=== PATIENT | female | born 1970 | race Caucasian/White ===

== ENCOUNTER 2017-03-22 16:00 | Observation (INO) | payer BC, MEDICARE ==
[~2017-03-22] VITALS: Ht 167.6 cm; Wt 84.1 kg
[~2017-03-22 16:00] MED LIST: ADDE30XR PO; CARI350T19 PO; IBUP800 PO; LOVA20TA PO; NEXI20CA; NORC10TA2; PROM1SUP12 PR; TIZA4; TOPR25TA2; VALI5TAB PO; VICOTAB4 PO; ZOLP10TA3 PO
[2017-03-22 16:17] VITALS: BP 130/63; PULSE 90; RESP 16; TEMP 97.9; O2SAT 99
[2017-03-22] MEDS ORDERED: SODIUM CHLOR 0.9% 1000 ML INJ 1,000 ML IV ONE (16:27)
[2017-03-22] MEDS ORDERED: METOCLOPRAMIDE HCL 10 MG/2 ML VIAL IVP ONE (16:30)
[2017-03-22] MEDS ORDERED: HYDROmorphone HCL PF 1 MG/ML VIAL IV PUSH ONE (16:30)
[2017-03-22] MEDS ORDERED: diphenhydrAMINE HCL 50 MG/ML VIAL IVP ONE (16:30)
[2017-03-22] MEDS ORDERED: SODIUM CHLORIDE 0.9% FLUSH 10 ML FLUSH IVF PRN (16:30)
--- NOTE | 2017-03-22 16:40 | PD ---
HPI Chief Complaint: Headache Time Seen by Provider: 16:25 Travel History International Travel<30 days: No Contact w/Intl Traveler<30days: No Traveled to known affect area: No History of Present Illness HPI 46-year-old female presents for evaluation of headache. She reports that she was evaluated at [facility] on March 15 for headache. She underwent a lumbar puncture to rule out meningitis and she was told that this was negative. She was diagnosed with sinusitis. She reports that after her discharge she developed worsened generalized headache which is worse when standing. She returned on March 16 and was admitted for 4 days. She reports that they attempted do a blood patch however this was unsuccessful. Since discharge she has had persistent generalized throbbing constant headache which is worse when standing. She endorses nausea and vomiting, dehydration. She was referred here by her physician. She reports a history of lumbar fusion which made the blood patch difficult. She denies fevers, chills, chest pain or shortness of breath, abdominal pain. No other complaints. PFSH Past Medical History Arthritis: Yes (DEGENERATIVE DISEASE) Anxiety: Yes (PANIC ATTACHES PRIOR TO ADMISSION ) Depression: No Heart Rhythm Problems: No Cancer: No Cardiovascular Problems: Yes (HYPOTENSION) High Cholesterol: Yes Chest Pain: No Congestive Heart Failure: No Cerebrovascular Accident: No Diabetes: No Diminished Hearing: No Endocrine: No Gastrointestinal Disorders: Yes GERD: Yes Genitourinary: Yes (FEB 2016 INCONTINENCE/BLADDER RECTUM WITH BACK PAIN) Headaches: Yes Hiatal Hernia: Yes Immune Disorder: No Insomnia: Yes Kidney Stones: No Musculoskeletal: Yes Neurologic: Yes ("FAILED BACK SYNDROME") Psychiatric: Yes Reproductive: No Respiratory: No Migraines: Yes Renal Failure: No Seizures: Yes (hx) Ulcer: No Tetanus Vaccination: > 5 Years ?: Not Past Surgical History AICD: No Appendectomy: Yes Arteriovenous Shunt: No Body Medical Devices: HYPOTENTION Cardiac Surgery: No Cholecystectomy: Yes Ear Surgery: No Endocrine Surgery: No Eye Surgery: No Genitourinary Surgery: No Gynecologic Surgery: Yes (HYSTERECTOMY) Hysterectomy: Yes Insulin Pump: No Joint Replacement: Yes (RODS AND SCREWS IN SPINE ) Neurologic Surgery: No Oral Surgery: No Pacemaker: No Thoracic Surgery: No Other Surgery: Yes Social History Alcohol Use: Yes (occasional) Tobacco Use: No Substance Use: No Allergies-Medications (Allergen,Severity, Reaction): Coded Allergies: haloperidol (Verified Allergy, Severe, Anaphylaxis, 10/10/17) ondansetron (Verified Allergy, Severe, Anaphylaxis, 03/22/17) prochlorperazine (Verified Allergy, Severe, Anaphylaxis, 03/22/17) ketorolac (Verified Allergy, Intermediate, SWELLOING ITCHING HIVES , 03/22) tramadol (Verified Allergy, Intermediate, SWELLING ITCHING HIVES , ) Sulfa (Sulfonamide Antibiotics) (Verified Allergy, Mild, Rash, 03/22/17) azithromycin (Verified Allergy, Mild, Rash, 03/22/17) droperidol (Verified Allergy, Mild, Rash, 03/22/17) nalbuphine (Verified Allergy, Mild, N/V, 03/22/17) Reported Meds & Prescriptions Reported Meds & Active Scripts Active Reported Dymista Nasal [place] (Azelastine-Fluticasone Nasal [place]) 137-50 Mcg [place] 1 [place] EACH NARE BID To each nostril. Augmentin (Amoxicillin-Clavulanate) 875-125 Mg Tab 1 Tab PO Q12HR Zolpidem (Zolpidem Tartrate) 10 Mg Tab 10 Mg PO HS PRN Tizanidine (Tizanidine HCl) 4 Mg Cap 4 Mg PO HS Lovastatin 10 Mg Tab 10 Mg PO HS Ibuprofen 800 Mg Tab 800 Mg PO Q8H PRN [place] (Hydrocodone-Acetaminophen) 10-325 Mg Tab 1 Tab PO Q4-6H PRN Nexium (Esomeprazole DR) 20 Mg Capdr 20 Mg PO DAILY PRN Valium (Diazepam) 10 Mg Tab 10 Mg PO TID PRN Soma (Carisoprodol) 350 Mg Tab 350 Mg PO QID PRN Adderall Xr 24 HR (Amphetamine/Dextroamphetamine) 30 Mg Cap 60 Mg PO DAILY Once daily in the morning. Review of Systems Except as stated in HPI: all other systems reviewed are Neg Physical Exam Narrative GENERAL: Well-developed well-nourished female who appears uncomfortable on initial examination. She is lying supine. SKIN: Warm and dry. HEAD: Atraumatic. Normocephalic. EYES: Pupils equal and round. No scleral icterus. No injection or drainage. ENT: No nasal bleeding or discharge. Mucous membranes pink and moist. NECK: Trachea midline. No JVD. CARDIOVASCULAR: Regular rate and rhythm. No murmur appreciated. RESPIRATORY: No accessory muscle use. Clear to auscultation. Breath sounds equal bilaterally. GASTROINTESTINAL: Abdomen soft, non-tender, nondistended. Hepatic and splenic margins not palpable. MUSCULOSKELETAL: No obvious deformities. No clubbing. No cyanosis. No edema. NEUROLOGICAL: Awake and alert. No obvious cranial nerve deficits. Motor grossly within normal limits. Normal speech. PSYCHIATRIC: Appropriate mood and affect; insight and judgment normal. Data Data Last Documented VS Vital Signs Date Time Temp Pulse Resp B/P (MAP) Pulse Ox O2 Delivery O2 Flow Rate FiO2 03/22/17 16:24 15 99 Room Air 03/22/17 16: 97.9 90 130/63 (85) Orders Orders Complete Blood Count With Diff (03/22/17 16:) Comprehensive Metabolic Panel (03/22/17 16:) Prothrombin Time / Inr (Pt) (03/22/17 16:) Act Partial Throm Time (Ptt) (03/22/17 16:) Ct Brain W/O Iv Contrast(Rout) (03/22/17 16:27) Ecg Monitoring (03/22/17 16:27) Iv Access Insert/Monitor (03/22/17 16:) Oximetry (03/22/17 16:27) Sodium Chloride 0.9% Flush (Ns Flush) (03/22/17 16:30) Diphenhydramine Inj (Benadryl Inj) (03/22/17 16:30) Metoclopramide Inj (Reglan Inj) (03/22/17 16:30) Sodium Chlor 0.9% 1000 Ml Inj (Ns 1000 M (03/22/17 16:27) Hydromorphone Pf Inj (Dilaudid Pf Inj) (03/22/17 16:30) Labs Laboratory Tests Test 03/22/17 16:35 White Blood Count 8.6 TH/MM3 Red Blood Count 4.63 MIL/MM3 Hemoglobin 14.6 GM/DL Hematocrit 42.5 % Mean Corpuscular Volume 91.8 FL Mean Corpuscular Hemoglobin 31.6 PG Mean Corpuscular Hemoglobin Concent 34.4 % Red Cell Distribution Width 12.7 % Platelet Count 246 TH/MM3 Mean Platelet Volume 8.6 FL Neutrophils (%) (Auto) 58.2 % Lymphocytes (%) (Auto) 27.4 % Monocytes (%) (Auto) 7.5 % Eosinophils (%) (Auto) 6.2 % Basophils (%) (Auto) 0.7 % Neutrophils # (Auto) 5.0 TH/MM3 Lymphocytes # (Auto) 2.4 TH/MM3 Monocytes # (Auto) 0.6 TH/MM3 Eosinophils # (Auto) 0.5 TH/MM3 Basophils # (Auto) 0.1 TH/MM3 CBC Comment AUTO DIFF Differential Comment AUTO DIFF CONFIRMED Platelet Estimate NORMAL Platelet Morphology Comment NORMAL Prothrombin Time 10.2 SEC Prothromb Time International Ratio 0.9 RATIO Activated Partial Thromboplast Time 22.3 SEC Blood Urea Nitrogen 7 MG/DL Creatinine 0.63 MG/DL Random Glucose 86 MG/DL Total Protein 7.3 GM/DL Albumin 3.5 GM/DL Calcium Level 8.6 MG/DL Alkaline Phosphatase 102 U/L Aspartate Amino Transf (AST/SGOT) 97 U/L Alanine Aminotransferase (ALT/SGPT) 123 U/L Total Bilirubin 0.8 MG/DL Sodium Level 138 MEQ/L Potassium Level 4.0 MEQ/L Chloride Level 104 MEQ/L Carbon Dioxide Level 27.0 MEQ/L Anion Gap 7 MEQ/L Estimat Glomerular Filtration Rate 102 ML/MIN MDM Medical Decision Making Medical Screen Exam Complete: Yes Emergency Medical Condition: Yes Medical Record Reviewed: Yes Differential Diagnosis Post lumbar puncture headache, subarachnoid hemorrhage, tension headache, migraine without aura Narrative Course The patient was placed on ECG monitoring pulse oximetry. Plan is for lab work, CT of the brain. She was given IV fluids, Dilaudid, Reglan, Benadryl. 1750: Upon reexamination the patient's headache has not been alleviated by the above medications. CT of the brain is unremarkable. Labwork reveals mildly elevated liver enzymes. At this point in time the plan is to admit the patient for intractable post-lumbar puncture headache, possibly IR consultation for blood patch. D/w Dr. Lazcano who is agreeable with admission. Diagnosis Primary Impression: Post lumbar puncture headache Admitting Information Admitting Physician Requests: Howard Reagan Mar 22, 2017 16:40
[2017-03-22] MEDS ORDERED: IBUP800T23 PO (16:52)
[2017-03-22] MEDS ORDERED: AZEL137S EACH NARE (16:52)
[2017-03-22] MEDS ORDERED: TIZA4CAP3 PO (16:52)
[2017-03-22] MEDS ORDERED: LOVA10TA PO (16:52)
[2017-03-22] MEDS ORDERED: ADDE30XR PO (16:52)
[2017-03-22] MEDS ORDERED: AUGM875T3 PO (16:52)
[2017-03-22] MEDS ORDERED: NEXI20CA PO (16:52)
[2017-03-22] MEDS ORDERED: ZOLP10TA3 PO (16:52)
[2017-03-22] MEDS ORDERED: HYDR-3366 PO (16:52)
[2017-03-22] MEDS ORDERED: DIAZ10 PO (16:52)
[2017-03-22] MEDS ORDERED: SOMA350T PO (16:52)
[2017-03-22 17:10] LABS: BASOPHIL # 0.1 TH/MM3 (0-0.2); BASOPHIL % 0.7 % (0.0-2.0); EOSINOPHIL # 0.5 TH/MM3 (0-0.4); EOSINOPHIL % 6.2 % (0.0-4.0); HEMATOCRIT 42.5 % (35.0-46.0); LYMPH % 27.4 % (9.0-44.0); LYMPHOCYTE # 2.4 TH/MM3 (1.0-4.8); MEAN CELL VOLUME 91.8 FL (80.0-100.0); MEAN CORPUSCULAR HEMOGLOBIN 31.6 PG (27.0-34.0); MEAN CORPUSCULAR HGB CONC 34.4 % (32.0-36.0); MONO % 7.5 % (0.0-8.0); NEUT % 58.2 % (16.0-70.0); PLATELET COUNT 246 TH/MM3 (150-450); RED BLOOD COUNT 4.63 MIL/MM3 (4.00-5.30); RED CELL DISTRIBUTION WIDTH 12.7 % (11.6-17.2); WHITE BLOOD COUNT 8.6 TH/MM3 (4.0-11.0)
[2017-03-22 17:14] LABS: HEMO FLAGS AUTO DIFF
[2017-03-22 17:18] LABS: APTT (PATIENT) 22.3 SEC (24.3-30.1); INTERNATIONAL NORMALIZED RATIO 0.9 RATIO; PROTHROMBIN TIME - PATIENT 10.2 SEC (9.8-11.6)
[2017-03-22 17:36] LABS: ALKALINE PHOSPHATASE 102 U/L (45-117); TOTAL BILIRUBIN ADULT 0.8 MG/DL (0.2-1.0)
[2017-03-22 17:37] LABS: ALT (GPT) 123 U/L (10-53); ANION GAP 7 MEQ/L (5-15); AST (GOT) 97 U/L (15-37); BLOOD UREA NITROGEN 7 MG/DL (7-18); CHLORIDE 104 MEQ/L (98-107); GLOMERULAR FILTRATION RATE 102 ML/MIN (>89); SODIUM (NA) 138 MEQ/L (136-145)
--- NOTE | 2017-03-22 17:40 | RADRPT ---
EXAM DATE/TIME: 03/22/2017 17:15 [place] COMPARISON: CT BRAIN W/O CONTRAST, January 31, 2016, 12:03. INDICATIONS : Leaking lumbar puncture,headache RADIATION DOSE: 31.71 CTDIvol (mGy) MEDICAL HISTORY : Cardiovascular disease. Seizures. SURGICAL HISTORY : Arthroscopy. Cholecystectomy.Hysterectomy. ENCOUNTER: Initial ACUITY: 1 day PAIN SCALE: 10/10 LOCATION: cranial TECHNIQUE: Multiple contiguous axial images were obtained of the head. Using automated exposure control and adj ustment of the mA and/or kV according to patient size, radiation dose was kept as low as reasonably a chievable to obtain optimal diagnostic quality images. DICOM format image data is available electro nically for review and comparison. FINDINGS: CEREBRUM: The ventricles are normal for age. No evidence of midline shift, mass lesion, hemorrhage or acute in farction. No extra-axial fluid collections are seen. POSTERIOR FOSSA: The cerebellum and brainstem are intact. The 4th ventricle is midline. The cerebellopontine angle i s unremarkable. EXTRACRANIAL: The visualized portion of the orbits is intact. SKULL: The calvaria is intact. No evidence of skull fracture. CONCLUSION: No acute disease. Malachi Garcia MD on March 22, 2017 at 17:37 Board Certified Radiologist. This report was verified electronically.
[2017-03-22 17:50] LABS: PLATELET ESTIMATE SMEAR NORMAL (NORMAL); PLATELET MORPHOLOGY NORMAL (NORMAL); SCAN/DIFF AUTO DIFF CONFIRMED
[2017-03-22] MEDS ORDERED: SODIUM CHLORIDE 0.9% FLUSH 10 ML FLUSH IV FLUSH PRN (18:15)
[2017-03-22] MEDS ORDERED: SENNOSIDES 8.6 MG TAB PO PRN (18:15)
[2017-03-22] MEDS ORDERED: LACTULOSE SYRUP 20 GM/30 ML CUP PO PRN (18:15)
[2017-03-22] MEDS ORDERED: BISACODYL 10 MG SUPP RECTAL PRN (18:15)
[2017-03-22] MEDS ORDERED: NALOXONE HCL 0.4 MG/ML AMP IV PUSH PRN (18:15)
[2017-03-22] MEDS ORDERED: ACETAMINOPHEN 325 MG TAB PO PRN (18:15)
[2017-03-22] MEDS ORDERED: MAGNESIUM HYDROXIDE SUSP 30 ML CUP PO PRN (18:15)
[2017-03-22 18:57] VITALS: BP 104/67; PULSE 81; RESP 15; O2SAT 96
[2017-03-22 18:58] VITALS: BP 104/67; PULSE 77; RESP 14; O2SAT 97
[2017-03-22] MEDS: SODIUM CHLOR 0.9% 1000 ML INJ 1,000 ML IV SCH (19:01)
[2017-03-22 19:26] LABS: BETA HCG QUANT LESS THAN 1 MIU/ML (0-5)
--- NOTE | 2017-03-22 19:39 | MH ---
cc: DUSTY LAZCANO DATE OF ADMISSION 03/22/2017 DATE OF [address] Dusty Lazcano. PRIMARY CARE PHYSICIAN Dr. Christianson. REASON FOR ADMISSION Severe headache. HISTORY OF THE PRESENT ILLNESS The patient is a very pleasant 46-year-old female with significant past medical history of back problem for which she had a fusion in the past. As per patient she has a lumbar puncture in the past and at that time she had a blood patch done at [facility] by Dr. Irwin for severe headache and . As per patient she was having some problem for which she had a lumbar puncture done at [facility] on March 15. After that she is having severe pain. She has a history of sinusitis as well. And headache is severe with nausea and vomiting. She went back to [facility] where a blood patch was done and she was there for 4 days but it did not help. She was discharged. She continues to have a headache for which she came here today. Evaluated by the ER PA and because of the severe headache with nausea, vomiting and headache is worsening on standing, the patient was recommended for observation admission and for blood patch here. At present the patient is seen in the ER, room number 857 with a nurse. The patient he has no other associated symptoms. PAST MEDICAL HISTORY 1. Degenerative disc disease status post surgery. 2. Panic attacks in the past. 3. History of hypertension in the past. 4. Gastroesophageal reflux disease. 5. Chronic back pain ___ dependent. 6. Hysterectomy. 7. Rods and screws in the spine for fusion. MEDICATIONS Reviewed please see EMR. ALLERGIES THE PATIENT IS ALLERGIC TO HALDOL ONDANSETRON, PROCHLORPERAZINE, KETOROLAC, TRAMADOL, SULFA, AZITHROMYCIN, DROPERIDOL AND NALBUPHINE. SOCIAL HISTORY The patient stopped smoking a few years ago. Occasional drinks. Does not do any drugs. REVIEW OF SYSTEMS As described above in the history of present illness, otherwise negative for 10 systems. PHYSICAL EXAMINATION GENERAL: The patient is alert, oriented, lying in bed without any cardiorespiratory distress. VITAL SIGNS: The patient is afebrile. Pulse in the 90, respiratory rate 15, blood pressure 130/63. Pulse oximetry of 99% on room air. HEENT: Head is normocephalic, atraumatic. Eyes negative conjunctival icterus. Mouth is unremarkable. NECK: Supple. No increased JVD. Central trachea. CHEST: Clear to auscultation. CARDIOVASCULAR: S1-S2 audible. Unable to hear any S3 gallop. GASTROINTESTINAL: Abdomen soft, nontender. No organomegaly. Positive bowel sounds. MUSCULOSKELETAL: Extremities no cyanosis or pedal edema appreciated. CENTRAL NERVOUS SYSTEM: Alert and oriented. Normal facial features. Normal speech. Moving all her extremities. Normal deep tendon reflexes at knee joint. Normal Babinski's. PSYCHIATRIC: Within normal limits. IMAGING CT no acute disease. LABORATORY DATA CBC within normal limits. BMP within normal limits. AST 97, ALT 123 otherwise LFTs within normal limits. PT 10.2, INR 0.9, APTT 22.3. ASSESSMENT 1. Severe headache with nausea and vomiting after a lumbar puncture likely secondary to CSF leakage status post blood patch at [facility], need a blood patch. 2. Sinusitis on antibiotics. We will continue. 3. Chronic back pain ____ dependent. 4. Hypercholesterolemia by history. 5. History of gastroesophageal reflux disease. 6. Hypertension history. PLAN 1. The patient will be admitted under observation. 2. Anesthesia consultation. 3. IV hydration. 4. Analgesics and antiemetics on as needed basis. 5. Continue some of the home medications as indicated. 6. Condition discussed with the patient. Further recommendations to follow as the patient progresses. Dusty Lazcano MD JP/CATRINA /6:36 PM /6:50 PM
[2017-03-22 20:37] VITALS: BP 92/51; PULSE 74; RESP 18; TEMP 98.1; O2SAT 96
[2017-03-22] MEDS: SODIUM CHLORIDE 0.9% FLUSH 10 ML FLUSH IV FLUSH SCH (21:00)
[2017-03-22] MEDS: AZELASTINE FLUTICASONE NASAL SCH (21:00)
[2017-03-22] MEDS: DIAZEPAM 10 MG TAB PO PRN (21:29)
[2017-03-22] MEDS: ACETAMINOPHEN/HYDROcodone 325 MG/10 MG TAB PO PRN (21:29)
[2017-03-22] MEDS: ZOLPIDEM TARTRATE 10 MG TAB PO PRN (21:29)
[2017-03-22] MEDS: DOCUSATE SODIUM 50 MG/SENNA 8.6 MG TAB PO SCH (21:29)
[2017-03-22] MEDS: PRAVASTATIN SOD 10 MG TAB PO SCH (21:29)
[2017-03-22] MEDS: AMOXICILLIN/CLAVULANATE K 875 MG TAB PO SCH (21:29)
[2017-03-22] MEDS: HYDROmorphone HCL PF 1 MG/ML VIAL IV PUSH PRN (21:57)
[2017-03-22] MEDS: METOCLOPRAMIDE HCL 10 MG/2 ML VIAL IV PUSH PRN (22:38)
[2017-03-22 23:43] VITALS: BP 96/49; PULSE 67; RESP 18; TEMP 98; O2SAT 95
[2017-03-23] MEDS: ACETAMINOPHEN/HYDROcodone 325 MG/10 MG TAB PO PRN ×2 (02:42→07:06)
[2017-03-23] MEDS: SODIUM CHLOR 0.9% 1000 ML INJ 1,000 ML IV SCH ×2 (02:42→20:01)
[2017-03-23 03:28] VITALS: BP 90/50; PULSE 66; RESP 18; TEMP 98.2; O2SAT 98
[2017-03-23] MEDS: HYDROmorphone HCL PF 1 MG/ML VIAL IV PUSH PRN ×3 (03:51→11:37)
[2017-03-23] MEDS ORDERED: PANTOPRAZOLE SOD 20 MG DELAYED RELEASE TAB PO PRN (06:00)
[2017-03-23 08:13] VITALS: BP 96/51; PULSE 76; RESP 20; TEMP 97.8; O2SAT 98
[2017-03-23] MEDS: AMOXICILLIN/CLAVULANATE K 875 MG TAB PO SCH ×2 (08:32→21:14)
[2017-03-23] MEDS: METOCLOPRAMIDE HCL 10 MG/2 ML VIAL IV PUSH PRN (08:32)
[2017-03-23] MEDS: SODIUM CHLORIDE 0.9% FLUSH 10 ML FLUSH IV FLUSH SCH ×2 (08:33→21:00)
[2017-03-23] MEDS: DOCUSATE SODIUM 50 MG/SENNA 8.6 MG TAB PO SCH ×3 (08:34→21:14)
[2017-03-23] MEDS: AZELASTINE FLUTICASONE NASAL SCH ×2 (08:35→21:00)
[2017-03-23] MEDS: DEXTROAMPHETAMINE/AMPHETAMINE XR 30 MG CAP PO SCH (09:00)
[2017-03-23] MEDS ORDERED: PNEUMOCOCCAL POLYVALENT INJ 25 MCG/0.5 ML SYR IM ONE (10:00)
[2017-03-23] MEDS ORDERED: INFLUENZA VIRUS VACCINE (QUADRIVALENT) 0.5 ML SYR IM ONE (10:00)
[2017-03-23 11:50] VITALS: BP 110/58; PULSE 77; RESP 18; TEMP 96.8; O2SAT 97
[2017-03-23] MEDS: DIAZEPAM 10 MG TAB PO PRN ×2 (12:43→21:14)
[2017-03-23] MEDS ORDERED: RESP: LIDOCAINE HCL 4% PF 5 ML NEB ONE (13:11)
[2017-03-23] MEDS ORDERED: MIDAZOLAM HCL 5 MG/5 ML VIAL ONE (13:19)
[2017-03-23] MEDS ORDERED: MIDAZOLAM HCL 5 MG/5 ML VIAL IV PUSH ONE (14:30)
--- NOTE | 2017-03-23 15:28 | HHI.PR ---
Subjective Remarks Patient is still complaining of headache generalized type with nausea and vomiting. As the patient Compazine she is allergic to. As the patient only Phenergan works. [place] as the patient tolerated doesn't work she is okay with morphine. No other associated symptoms. Patient was examined with female RN at bedside Review of system for 10 point system otherwise unremarkable Objective Objective Results - Vital Signs Date Time Temp Pulse Resp B/P (MAP) Pulse Ox O2 Delivery O2 Flow Rate FiO2 03/23/17 14:00 84 18 121/65 (83) 96 Room Air 03/23/17 13:30 82 17 120/67 (84) 96 Room Air 03/23/17 13:25 78 18 120/68 (85) 96 Room Air 03/23/17 13:25 81 18 133/70 (91) 95 Room Air 03/23/17 13:10 77 18 126/70 (88) 100 Room Air 03/23/17 11:50 96.8 77 18 110/58 (75) 97 03/23/17 08:13 97.8 76 20 96/51 (66) 98 03/23/17 04:35 18 03/23/17 03:50 18 03/23/17 03:28 98.2 66 18 90/50 (63) 98 03/22/17 23:43 98.0 67 18 96/49 (65) 95 03/22/17 20:37 98.1 74 18 92/51 (65) 96 03/22/17 19:46 03/22/17 18:58 77 14 104/67 (79) 97 Room Air 03/22/17 18:57 81 15 104/67 (79) 96 Room Air 03/22/17 17:20 15 03/22/17 16:24 15 99 Room Air 03/22/17 16:17 97.9 90 16 130/63 (85) 99 I/O 03/22/17 03/22/17 03/22/17 03/23/17 03/23/17 03/23/17 07:00 15:00 23:00 07:00 15:00 23:00 Intake Total 1100 ml 200 ml Balance 1100 ml 200 ml Intake Oral 100 ml 200 ml IV Total 1000 ml Result Diagram: 03/22/17 1635 03/22/17 1635 Other Results Laboratory Tests Test 03/22/17 16:35 White Blood Count 8.6 Red Blood Count 4.63 Hemoglobin 14.6 Hematocrit 42.5 Mean Corpuscular Volume 91.8 Mean Corpuscular Hemoglobin 31.6 Mean Corpuscular Hemoglobin Concent 34.4 Red Cell Distribution Width 12.7 Platelet Count 246 Mean Platelet Volume 8.6 Neutrophils (%) (Auto) 58.2 Lymphocytes (%) (Auto) 27.4 Monocytes (%) (Auto) 7.5 Eosinophils (%) (Auto) 6.2 Basophils (%) (Auto) 0.7 Neutrophils # (Auto) 5.0 Lymphocytes # (Auto) 2.4 Monocytes # (Auto) 0.6 Eosinophils # (Auto) 0.5 Basophils # (Auto) 0.1 CBC Comment AUTO DIFF Differential Comment AUTO DIFF CONFIRMED Platelet Estimate NORMAL Platelet Morphology Comment NORMAL Prothrombin Time 10.2 Prothromb Time International Ratio 0.9 Activated Partial Thromboplast Time 22.3 Blood Urea Nitrogen 7 Creatinine 0.63 Random Glucose 86 Total Protein 7.3 Albumin 3.5 Calcium Level 8.6 Alkaline Phosphatase 102 Aspartate Amino Transf (AST/SGOT) 97 Alanine Aminotransferase (ALT/SGPT) 123 Total Bilirubin 0.8 Sodium Level 138 Potassium Level 4.0 Chloride Level 104 Carbon Dioxide Level 27.0 Anion Gap 7 Estimat Glomerular Filtration Rate 102 Human Chorionic Gonadotropin, Quant LESS THAN 1 Physical Exam Physical Exam GENERAL: The patient is alert, oriented, lying in bed without any cardiorespiratory distress. VITAL SIGNS: Reviewed HEENT: Head is normocephalic, atraumatic. Eyes negative conjunctival icterus. Mouth is unremarkable. NECK: Supple. No increased JVD. Central trachea. CHEST: Clear to auscultation. CARDIOVASCULAR: S1-S2 audible. Unable to hear any S3 gallop. GASTROINTESTINAL: Abdomen soft, nontender. No organomegaly. Positive bowel sounds. MUSCULOSKELETAL: Extremities no cyanosis or pedal edema appreciated. CENTRAL NERVOUS SYSTEM: Alert and oriented. Normal facial features. Normal speech. Moving all her extremities. Normal deep tendon reflexes at knee joint. Normal Babinski's. PSYCHIATRIC: Within normal limits. A/P Assessment and Plan 1. Severe headache with nausea and vomiting after a lumbar puncture likely secondary to CSF leakage status post blood patch at [facility], need a blood patch. 2. Sinusitis on antibiotics. We will continue. 3. Chronic back pain and narcotic dependent. 4. Hypercholesterolemia by history. 5. History of gastroesophageal reflux disease. 6. Hypertension history. PLAN DC Dilaudid Start Phenergan Start morphine for pain Dr. Irwin is going to do a blood patch in [place] tomorrow Discussed with case supervisor about transportation to [place] tomorrow point of care specialist for blood patch Continue IV hydration. Continue some of the home medications as indicated. Condition discussed with the patient. Discussed with RN Discussed case supervisor Edwin Lazcano MD Mar 23, 2017 15:28
[2017-03-23] MEDS ORDERED: MORPHINE SULFATE 2 MG/ML INJ IM PRN (15:30)
[2017-03-23 16:10] VITALS: BP 121/62; PULSE 81; RESP 18; TEMP 97.2; O2SAT 99
[2017-03-23] MEDS ORDERED: PROMETHAZINE INJ 25 MG/ML VIAL IM ONE (16:30)
[2017-03-23] MEDS: MORPHINE SULFATE 2 MG/ML INJ IV PRN ×2 (18:27→23:16)
[2017-03-23 20:08] VITALS: BP 111/60; PULSE 89; RESP 17; TEMP 97.9; O2SAT 97
[2017-03-23] MEDS: ZOLPIDEM TARTRATE 10 MG TAB PO PRN (21:14)
[2017-03-23] MEDS: PROMETHAZINE HCL 25 MG TAB PO PRN (21:14)
[2017-03-23] MEDS: PRAVASTATIN SOD 10 MG TAB PO SCH (21:14)
[2017-03-23 23:23] VITALS: BP 87/53; PULSE 79; RESP 16; TEMP 97.9; O2SAT 96
[2017-03-24] MEDS: SODIUM CHLOR 0.9% 1000 ML INJ 1,000 ML IV SCH ×3 (00:15→20:15)
[2017-03-24 03:07] VITALS: BP 105/52; PULSE 76; RESP 16; TEMP 98; O2SAT 99
[2017-03-24] MEDS: MORPHINE SULFATE 2 MG/ML INJ IV PRN ×3 (05:10→17:42)
[2017-03-24] MEDS: AZELASTINE FLUTICASONE NASAL SCH ×2 (09:00→21:00)
[2017-03-24] MEDS: METOCLOPRAMIDE HCL 10 MG/2 ML VIAL IV PUSH PRN (13:21)
[2017-03-24] MEDS: SODIUM CHLORIDE 0.9% FLUSH 10 ML FLUSH IV FLUSH SCH ×2 (13:21→20:50)
[2017-03-24 15:49] VITALS: BP 96/57; PULSE 98; RESP 18; TEMP 96; O2SAT 98
[2017-03-24] MEDS: CARISOPRODOL 350 MG TAB PO PRN (16:36)
[2017-03-24] MEDS: DEXTROAMPHETAMINE/AMPHETAMINE XR 30 MG CAP PO SCH (17:43)
[2017-03-24] MEDS: AMOXICILLIN/CLAVULANATE K 875 MG TAB PO SCH ×2 (17:44→20:49)
[2017-03-24] MEDS: PROMETHAZINE HCL 25 MG TAB PO PRN (17:46)
--- NOTE | 2017-03-24 18:14 | HHI.PR ---
Subjective Remarks As per patient headache is significantly improved after blood patch. Want a regular diet. Now she wants to sleep. She has been told to be a flat tonight. No other complaint. Just feeling tired after so many days of no good sleep No other associated symptoms. Patient was examined with female RN at bedside Review of system for 10 point system otherwise unremarkable Objective Objective Results - Vital Signs Date Time Temp Pulse Resp B/P (MAP) Pulse Ox O2 Delivery O2 Flow Rate FiO2 03/24/17 15:49 96.0 98 18 96/57 (70) 98 03/24/17 03:07 98.0 76 16 105/52 (69) 99 03/24/17 00:54 18 03/23/17 23:23 97.9 79 16 87/53 (64) 96 03/23/17 20:08 97.9 89 17 111/60 (77) 97 I/O 03/23/17 03/23/17 03/23/17 03/24/17 03/24/17 03/24/17 07:00 15:00 23:00 07:00 15:00 23:00 Intake Total 200 ml 2201 ml 2901 ml Balance 200 ml 2201 ml 2901 ml Intake Oral 200 ml 200 ml 200 ml IV Total 2001 ml 2201 ml Other 500 ml # Voids 4 # Bowel Movements 1 Result Diagram: 03/22/17 1635 03/22/17 1635 Physical Exam Physical Exam GENERAL: The patient is alert, oriented, lying in bed without any cardiorespiratory distress. VITAL SIGNS: Reviewed HEENT: Head is normocephalic, atraumatic. Eyes negative conjunctival icterus. Mouth is unremarkable. NECK: Supple. No increased JVD. Central trachea. CHEST: Clear to auscultation. CARDIOVASCULAR: S1-S2 audible. Unable to hear any S3 gallop. GASTROINTESTINAL: Abdomen soft, nontender. No organomegaly. Positive bowel sounds. MUSCULOSKELETAL: Extremities no cyanosis or pedal edema appreciated. CENTRAL NERVOUS SYSTEM: Alert and oriented. Normal facial features. Normal speech. Moving all her extremities. Normal deep tendon reflexes at knee joint. Normal Babinski's. PSYCHIATRIC: Within normal limits. A/P Assessment and Plan 1. Severe headache with nausea and vomiting after a lumbar puncture likely secondary to CSF leakage status post blood patch at [facility], need a blood patch. 2. Sinusitis on antibiotics. We will continue. 3. Chronic back pain and narcotic dependent. 4. Hypercholesterolemia by history. 5. History of gastroesophageal reflux disease. 6. Hypertension history. PLAN Appreciate Dr. Irwin's help. Status post blood patch Start Phenergan Start morphine for pain Headache is significantly improved there is no other associated symptoms Continue IV hydration. Continue some of the home medications as indicated. Condition discussed with the patient. Likely discharge tomorrow if is stable Discussed with RN Patient has appointment with Dr. Irwin on coming Tuesday Edwin Lazcano MD Mar 24, 2017 18:14
[2017-03-24 20:23] VITALS: BP 92/50; PULSE 87; RESP 18; TEMP 97.8; O2SAT 96
[2017-03-24] MEDS: PRAVASTATIN SOD 10 MG TAB PO SCH (20:50)
[2017-03-24] MEDS: DOCUSATE SODIUM 50 MG/SENNA 8.6 MG TAB PO SCH (20:51)
[2017-03-24 23:49] VITALS: BP 88/53; PULSE 70; RESP 17; TEMP 97.6; O2SAT 96
[2017-03-25 00:24] VITALS: BP 103/58
[2017-03-25] MEDS: ZOLPIDEM TARTRATE 10 MG TAB PO PRN (00:30)
[2017-03-25] MEDS: MORPHINE SULFATE 2 MG/ML INJ IV PRN (00:30)
[2017-03-25 03:34] VITALS: BP 80/53; PULSE 74; RESP 17; TEMP 97.9; O2SAT 97
[2017-03-25] MEDS: MORPHINE SULFATE 4 MG/ML INJ IV PRN ×3 (05:37→15:07)
[2017-03-25 08:10] VITALS: BP 103/56; PULSE 72; RESP 20; TEMP 97.9; O2SAT 97
[2017-03-25] MEDS: SODIUM CHLOR 0.9% 1000 ML INJ 1,000 ML IV SCH (08:45)
[2017-03-25] MEDS: DEXTROAMPHETAMINE/AMPHETAMINE XR 30 MG CAP PO SCH (08:45)
[2017-03-25] MEDS: SODIUM CHLORIDE 0.9% FLUSH 10 ML FLUSH IV FLUSH SCH (08:45)
[2017-03-25] MEDS: AMOXICILLIN/CLAVULANATE K 875 MG TAB PO SCH (08:45)
[2017-03-25] MEDS: AZELASTINE FLUTICASONE NASAL SCH (08:47)
[2017-03-25] MEDS: DOCUSATE SODIUM 50 MG/SENNA 8.6 MG TAB PO SCH (08:48)
[2017-03-25] MEDS: CARISOPRODOL 350 MG TAB PO PRN (10:44)
[2017-03-25 12:13] VITALS: BP 120/60; PULSE 70; RESP 20; TEMP 98; O2SAT 96
--- NOTE | 2017-03-25 14:59 | HHI.PR ---
Subjective Remarks As per patient no more headache after blood patch. She wants to go home today. Vision can get up without any problem walking No other complaint. Just feeling tired after so many days of no good sleep No other associated symptoms. Patient was examined with female RN at bedside Review of system for 10 point system otherwise unremarkable Objective Objective Results - Vital Signs Date Time Temp Pulse Resp B/P (MAP) Pulse Ox O2 Delivery O2 Flow Rate FiO2 03/25/17 12:13 98.0 70 20 120/60 (80) 96 03/25/17 08:10 97.9 72 20 103/56 (72) 97 03/25/17 05:42 18 03/25/17 03:34 97.9 74 17 80/53 (62) 97 03/25/17 00:35 16 03/25/17 00:24 103/58 (73) 03/24/17 23:49 97.6 70 17 88/53 (65) 96 03/24/17 20:23 97.8 87 18 92/50 (64) 96 03/24/17 15:49 96.0 98 18 96/57 (70) 98 I/O 03/24/17 03/24/17 03/24/17 03/25/17 03/25/17 03/25/17 07:00 15:00 23:00 07:00 15:00 23:00 Intake Total 2901 ml 1000 ml Balance 2901 ml 1000 ml Intake Oral 200 ml IV Total 2201 ml 1000 ml Other 500 ml Result Diagram: 03/22/17 1635 03/22/17 1635 Physical Exam Physical Exam GENERAL: The patient is alert, oriented, lying in bed without any cardiorespiratory distress. VITAL SIGNS: Reviewed HEENT: Head is normocephalic, atraumatic. Eyes negative conjunctival icterus. Mouth is unremarkable. NECK: Supple. No increased JVD. Central trachea. CHEST: Clear to auscultation. CARDIOVASCULAR: S1-S2 audible. Unable to hear any S3 gallop. GASTROINTESTINAL: Abdomen soft, nontender. No organomegaly. Positive bowel sounds. MUSCULOSKELETAL: Extremities no cyanosis or pedal edema appreciated. CENTRAL NERVOUS SYSTEM: Alert and oriented. Normal facial features. Normal speech. Moving all her extremities. Normal deep tendon reflexes at knee joint. Normal Babinski's. PSYCHIATRIC: Within normal limits. Back exam; 2 bandages, no swelling no discoloration nontender A/P Assessment and Plan 1. Severe headache with nausea and vomiting after a lumbar puncture likely secondary to CSF leakage status post blood patch at [facility], need a blood patch. 2. Sinusitis on antibiotics. We will continue. 3. Chronic back pain and narcotic dependent. 4. Hypercholesterolemia by history. 5. History of gastroesophageal reflux disease. 6. Hypertension history. PLAN Appreciate Dr. Irwin's help. Status post blood patch An Angio-Seal on a when necessary basis Headache is significantly improved there is no other associated symptoms on IV hydration. Continue some of the home medications as indicated. Condition discussed with the patient. Likely discharge today if is stable Discussed with RN Patient has appointment with Dr. Irwin on coming Tuesday Advised to follow primary care doctor Edwin Lazcano MD Mar 25, 2017 14:59
== END 2017-03-25 16:45 | disposition home or self-care (01) ==
LOC: NEPE 16:00 → NEDA 18:02 → NEPGCP 19:32
PROVIDERS: ADMIT Specialist; ATTEND Specialist
DX: G97.1 Other reaction to spinal and lumbar puncture (principal); R51 Headache; R11.2 Nausea with vomiting, unspecified; E86.0 Dehydration; R74.8 Abnormal levels of other serum enzymes; I10 Essential (primary) hypertension; E78.00 Pure hypercholesterolemia, unspecified; K21.9 Gastro-esophageal reflux disease without esophagitis; M54.9 Dorsalgia, unspecified; G89.29 Other chronic pain; M19.90 Unspecified osteoarthritis, unspecified site; R79.1 Abnormal coagulation profile; F11.20 Opioid dependence, uncomplicated; Z87.891 Personal history of nicotine dependence; Z79.899 Other long term (current) drug therapy; Z98.1 Arthrodesis status; Z23 Encounter for immunization
CPT/HCPCS: 36569; 70450; 76937; 80053; 84702; 85025; 85610; 85730; 90686; 90732; 96361; 96372; 96374; 96375; 96376; 99285; G0378; J1170; J1200; J2250; J2270; J2550; J2765; J7030; Q0169; Q2038

== ENCOUNTER → 2017-03-24 | Day surgery (SDC) | payer BC, MEDICARE ==
[~2017-03-24] MED LIST changes: +AUGM875T3 PO; +AZEL137S EACH NARE; -CARI350T19 PO; +DIAZ10 PO; +HYDR-3366 PO; -IBUP800 PO; +IBUP800T23 PO; +LIDOCAINE HCL 1% 30 ML VIAL INFIL ONE; +LOVA10TA PO; -LOVA20TA PO; +MEPERIDINE HCL 25 MG/ML VIAL IV ONE; +MIDAZOLAM HCL 2 MG/2 ML VIAL IV ONE; +MORPHINE SULFATE 2 MG/ML INJ ONE; -NEXI20CA; +NEXI20CA PO; -NORC10TA2; -PROM1SUP12 PR; +PROPOFOL 200 MG/20 ML AMP IV ONE; +SODIUM CHLORIDE 0.9% 10 ML VIAL ONE; +SOMA350T PO; -TIZA4; +TIZA4CAP3 PO; -TOPR25TA2; -VALI5TAB PO; -VICOTAB4 PO
--- NOTE | 2017-03-24 11:09 | M6 ---
cc: GERA IRWIN M.D. DATE 03/24/2017 DATE OF 1970 PROCEDURE Fluoroscopically guided epidural blood patch. History and physical was completed and signed. Consent was signed. Procedure site was marked. Medications were listed and reconciled. Pain score was recorded. Allergies were noted. Time out was taken. Fluoroscopy time was recorded where applicable. Sedation was administered or directed by Dr. Irwin. The patient was given oxygen. The patient was monitored by a registered nurse. Total procedure time was greater than 15 minutes. PROCEDURE NOTE The patient had a PICC line in her right arm. She was placed in the prone position on a Dave table, sedated with small amounts of Demerol, Versed and propofol titrated to effect. Her lumbar area was prepped with alcohol, 10% Betadine solution and draped with sterile drapes. Sterile gloves were used. Hat and mask were used. The skin was infiltrated with 1% Xylocaine using a 27-gauge needle, then a 3-1/2-inch, 18-gauge Littlejohn needle was advanced using fluoroscopic guidance and the [id number] technique into the epidural space at L3-4. Then multiple attempts were made at drawing the blood from veins in the patient's bilateral hands, bilateral antecubital fossa and the left foot. For each one of these attempts the skin was prepped with alcohol and Betadine and strict aseptic technique was used. Finally after 40 minutes of attempts, the decision was made to draw blood from her PICC line using aseptic technique. 18 mL of blood was drawn and injected into the epidural space. The needle was removed from the epidural space. The patient was taken to the recovery room with stable vital signs, neurologically intact. W. MD SKYLER Bundy/ELSI /9:36 AM /11:02 AM
== END | disposition home or self-care (01) ==
LOC: PHSDC 07:35
PROVIDERS: ATTEND Pain Medicine Interventional Pain Medicine
DX: R51 Headache (principal)
CPT/HCPCS: 62273; 77002; 99152; 99153; J2175; J2250; J2270

== ENCOUNTER → 2017-04-11 | Day surgery (SDC) | payer BC, MEDICARE ==
[~2017-04-11] VITALS: Ht 167.6 cm; Wt 83.0 kg
[~2017-04-11] MED LIST changes: +*morphine SULFATE 8 MG/ML PERIprocedure ONLY ONE; -AUGM875T3 PO; +BACITRACIN TOP OINT 15 GM TUBE ONE; +CHLORHEXIDINE GLUCONATE 2 % 1 PACK (2 CLOTHS) TOPICAL PRN; +DEXAMETHASONE SOD PHOS 4 MG/ML VIAL IV ONE; +DEXMEDETOMIDINE HCL 200 MCG/2 ML VIAL ONE; +DEXT10TA2 PO; +DO NOT ADM ANY ANTICOAGULANT DRUGS PRN; +HYDROmorphone HCL PF 1 MG/ML VIAL ONE; +HYDROmorphone HCL PF 2 MG/ML VIAL ONE; +INSULIN HUMAN REGULAR 1,000 UNITS/10 ML VIAL SQ PRN; +LACTATED RINGER'S 1000 ML IV PRN; +LIDOCAINE 1%/EPINEPHrine 1:100,000 SOLN 20 ML VIAL ONE; -LIDOCAINE HCL 1% 30 ML VIAL INFIL ONE; +LIDOCAINE HCL 1% PF 5 ML AMPULE OTHER ONE; -MEPERIDINE HCL 25 MG/ML VIAL IV ONE; +METOPROLOL TARTRATE 25 MG TAB PO PRN; -MORPHINE SULFATE 2 MG/ML INJ ONE; -NEXI20CA PO; +OXYMETAZOLINE HCL 0.05% 15 ML NASAL SPRAY ONE; +PHENYLEPH/NS 1000 MCG/10 ML SYR IV ONE; +POVIDONE IODINE 5% (ANTISEPSIS KIT) 4 APPLICATIONS EACH NARE PRN; +PROMETHAZINE INJ 25 MG/ML VIAL ONE; +ROCURONIUM INJ 50 MG/5 ML SYRINGE IV PUSH ONE; +SODIUM CHLORID 0.9% 500 ML IV PRN; -SODIUM CHLORIDE 0.9% 10 ML VIAL ONE; +SUCR1TAB PO; +SUGAMMADEX SODIUM 200 MG/2 ML VIAL IV PUSH ONE; +oxyCODONE/ACETAMINOPHEN 5 MG/325 MG TAB ONE; +oxyCODONE/ACETAMINOPHEN 5 MG/325 MG TAB PO PRN
[2017-04-11 12:30] VITALS: BP 121/70; PULSE 63; RESP 16; TEMP 98; O2SAT 100
--- NOTE | 2017-04-13 13:34 | MP ---
cc: KWABENA MCLEAN MD DATE OF SURGERY: 04/11/2017 PREOPERATIVE DIAGNOSIS Chronic sinusitis and headache. POSTOPERATIVE DIAGNOSIS Chronic sinusitis and headache. PROCEDURE PERFORMED Bilateral functional endoscopic sinus surgery with bilateral maxillary antrostomies, bilateral frontal sinusotomy, anterior ethmoidectomy and bilateral sphenoidotomy. ANESTHESIA General endotracheal. COMPLICATIONS None. FLUID REPLACEMENT 850 mL. ESTIMATED BLOOD LOSS 100 mL. INDICATION FOR PROCEDURE This is a 46-year-old female with chronic sinusitis unresponsive to maximal medical therapy. She continued to have headaches. She had a failed balloon sinuplasty approximately a year and a half ago due to allergic fungal sinusitis and continued to worsen with chronic sinus disease and complaints unresponsive to nebulized treatment as well as maximal medical therapy and deemed to require surgical intervention. The risks and benefits of the surgery were described in detail with the patient. She understood these and wished to proceed as planned. DESCRIPTION OF OPERATIVE COURSE After informed consent was obtained, the patient was taken to the operating room and was placed on the operating table. General endotracheal anesthesia was initiated following which the patient was prepped and draped in standard surgical fashion. Once this completed an operative timeout was undertaken. Once everyone was in agreement the procedure moved forward as planned. At this time 1% lidocaine with epinephrine on a spinal needle was injected into the uncinate processes bilaterally. Approximately 3 cc was used. Once this completed Afrin-soaked pledgets were inserted into the nasal cavity to allow proper decongestant to take place. Once this was finished a balloon-guided system was used to dilate the frontal sinus recesses bilaterally to 12 cm of H2O under direct visualization. Some inspissated mucus was suctioned out of this area. There was a small polypoid mucosa along the left frontal sinus recess. This was removed using an up-biter without difficulty. Both frontal sinus recesses were widely opened. At this time an uncinectomy was performed bilaterally using the backbiter, opening the uncinate process and the maxillary antrum widely, using the microdebrider then to remove the entirety of the uncinate process on both sides, widely opening the maxillary antrum. The maxillary sinus mucosa was very edematous and inspissated mucus that was filled in on the right side was removed under direct suction. There was no fungal debris noted at this time. Both the sinuses were then copiously irrigated out with 100 cc of normal saline and a curved olive-tip suction. Once this was completed the anterior ethmoid air cells were entered using the microdebrider bilaterally. There was inspissated mucus in the anterior ethmoid air cells. On the left there was again polypoid mucosa noted. This was removed using the microdebrider. Both maxillary sinuses and anterior ethmoids were widely opened. At this time Afrin-soaked pledgets were inserted into the middle meatus bilaterally to allow proper hemostasis to be obtained. At this time using the balloon-guided system both sphenoid sinuses were widely open to 12 cm of H2O widely opening the sphenoid sinuses. There was no inspissated mucus noted in either, however, on the left there was some mucosal edema noted but no fungal debris. Once this completed the Afrin-soaked pledgets were removed. Proper hemostasis was obtained. Sinu-Foam was then placed into the middle meatuses bilaterally. This marked the end of the procedure. The patient tolerated the procedure well, was awoken, extubated and transferred to the PACU in stable condition. Kwabena Mclean AT/BT /12:50 PM /1:17 PM
== END | disposition home or self-care (01) ==
LOC: HSDC 05:14
PROVIDERS: ATTEND Otolaryngology
DX: J32.0 Chronic maxillary sinusitis (principal); J32.1 Chronic frontal sinusitis; J32.3 Chronic sphenoidal sinusitis; R09.81 Nasal congestion; K21.9 Gastro-esophageal reflux disease without esophagitis; R51 Headache
CPT/HCPCS: 00160; 31254; 31256; 31276; 31287; J1100; J1170; J2250; J2270; J2370; J2550; J3010; J7120

== ENCOUNTER 2017-05-13 19:11 | Emergency (ER) | payer BC, MEDICARE ==
[~2017-05-13] VITALS: Ht 170.2 cm; Wt 82.0 kg
[~2017-05-13 19:11] MED LIST changes: -*morphine SULFATE 8 MG/ML PERIprocedure ONLY ONE; +AMOX-CLAV PO; -BACITRACIN TOP OINT 15 GM TUBE ONE; -CHLORHEXIDINE GLUCONATE 2 % 1 PACK (2 CLOTHS) TOPICAL PRN; -DEXAMETHASONE SOD PHOS 4 MG/ML VIAL IV ONE; -DEXMEDETOMIDINE HCL 200 MCG/2 ML VIAL ONE; -DO NOT ADM ANY ANTICOAGULANT DRUGS PRN; -HYDROmorphone HCL PF 1 MG/ML VIAL ONE; -HYDROmorphone HCL PF 2 MG/ML VIAL ONE; +IBUP1TAB7 PO; -IBUP800T23 PO; -INSULIN HUMAN REGULAR 1,000 UNITS/10 ML VIAL SQ PRN; -LACTATED RINGER'S 1000 ML IV PRN; -LIDOCAINE 1%/EPINEPHrine 1:100,000 SOLN 20 ML VIAL ONE; -LIDOCAINE HCL 1% PF 5 ML AMPULE OTHER ONE; -METOPROLOL TARTRATE 25 MG TAB PO PRN; -MIDAZOLAM HCL 2 MG/2 ML VIAL IV ONE; -OXYMETAZOLINE HCL 0.05% 15 ML NASAL SPRAY ONE; -PHENYLEPH/NS 1000 MCG/10 ML SYR IV ONE; -POVIDONE IODINE 5% (ANTISEPSIS KIT) 4 APPLICATIONS EACH NARE PRN; -PROMETHAZINE INJ 25 MG/ML VIAL ONE; -PROPOFOL 200 MG/20 ML AMP IV ONE; -ROCURONIUM INJ 50 MG/5 ML SYRINGE IV PUSH ONE; -SODIUM CHLORID 0.9% 500 ML IV PRN; -SUGAMMADEX SODIUM 200 MG/2 ML VIAL IV PUSH ONE; -oxyCODONE/ACETAMINOPHEN 5 MG/325 MG TAB ONE; -oxyCODONE/ACETAMINOPHEN 5 MG/325 MG TAB PO PRN
[2017-05-13 19:12] VITALS: BP 139/68; PULSE 94; RESP 16; TEMP 98; O2SAT 99
[2017-05-13] MEDS ORDERED: PRED20 PO (19:58)
[2017-05-13] MEDS ORDERED: CYAN1000P IM (19:58)
--- NOTE | 2017-05-13 20:19 | PD ---
HPI Chief Complaint: Bleeding Time Seen by Provider: 20:07 Travel History International Travel<30 days: No Contact w/Intl Traveler<30days: No Traveled to known affect area: No History of Present Illness HPI 46-year-old female presents with pain and increased bruising to her breast. He states that yesterday she had a breast biopsy with Dr chen and was told that they nicked a blood vessel. They marked an area on her breast and monitored her. She states that since she has been home that area has increased outside the area marked and her pain has increased. She denies any other concurrent concerns. Quality is sharp. Severity is severe. PFSH Past Medical History Arthritis: Yes (DEGENERATIVE DISK DISEASE) Asthma: No Blood Disorders: No Anxiety: Yes Depression: No Heart Rhythm Problems: No Cancer: No Cardiovascular Problems: Yes (Hypotension ) High Cholesterol: No Chemotherapy: No Chest Pain: No Congestive Heart Failure: No COPD: No Cerebrovascular Accident: No Diabetes: No Diminished Hearing: No Endocrine: No Gastrointestinal Disorders: Yes (GERD) GERD: Yes Headaches: Yes Hepatitis: No Hiatal Hernia: Yes Immune Disorder: No Insomnia: Yes Kidney Stones: No Medical other: Yes (brain tumor-routine MRI's to monitor it ) Musculoskeletal: Yes (back pain) Neurologic: Yes (headaches and back pain due to l2 to s1 fusion spine, HX: Sz ( resloved?)) Psychiatric: Yes (anxiety, ADHD) Reproductive: No Respiratory: Yes (seasonal allergies; sinus sx (last one 03/29) ) Migraines: Yes Radiation Therapy: No Renal Failure: No Seizures: Yes (hx; has an EEG that showed activity but has none that she is aware of ) Sleep Apnea: No Thyroid Disease: No Ulcer: No ?: Not Past Surgical History AICD: No Appendectomy: Yes Arteriovenous Shunt: No Body Medical Devices: lumbar screws/pin Cardiac Surgery: No Cholecystectomy: Yes Ear Surgery: No Endocrine Surgery: No Eye Surgery: No Genitourinary Surgery: No Gynecologic Surgery: Yes (HYSTERECTOMY; L breast BX (05/12/17) w/o for breast CA vs Cystic breasts) Hysterectomy: Yes (PARTIAL) Insulin Pump: No Joint Replacement: No Neurologic Surgery: No Oral Surgery: No Pacemaker: No Thoracic Surgery: No Other Surgery: Yes (multiple spinal taps over years) Social History Alcohol Use: Yes (occasional) Tobacco Use: No Substance Use: No Allergies-Medications (Allergen,Severity, Reaction): Coded Allergies: haloperidol (Verified Allergy, Severe, Anaphylaxis, 05/13/17) ondansetron (Verified Allergy, Severe, Anaphylaxis, 05/13/17) prochlorperazine (Verified Allergy, Severe, Anaphylaxis, 05/13/17) ketorolac (Verified Allergy, Intermediate, SWELLOING ITCHING HIVES , ) tramadol (Verified Allergy, Intermediate, SWELLING ITCHING HIVES , 05/13/17 ) Sulfa (Sulfonamide Antibiotics) (Verified Allergy, Mild, Rash, 05/13/17) azithromycin (Verified Allergy, Mild, Rash, 05/13/17) droperidol (Verified Allergy, Mild, Rash, 05/13/17) nalbuphine (Verified Allergy, Mild, N/V, 05/13/17) Reported Meds & Prescriptions Reported Meds & Active Scripts Active Reported Cyanocobalamin Inj (Cyanocobalamin) 1,000 Mcg/Ml Inj 1 Ml IM WEEKLY [Amox-Clav] 875mg-125mg 1 Tab PO BID 10 Days Prednisone 20 Mg Tab 40 Mg PO DAILY Dextroamphetamine (Dextroamphetamine Sulfate) 10 Mg Tab 10 Mg PO BID PRN Ibuprofen 800 Mg Tab 800 Mg PO BID PRN Sucralfate 1 Gram Tab 1 Gm PO QID on empty stomach Dymista Nasal [place] (Azelastine-Fluticasone Nasal [place]utier) 137-50 Mcg Clutier 1 Clutier EACH NARE BID To each nostril. Zolpidem (Zolpidem Tartrate) 10 Mg Tab 10 Mg PO HS PRN Tizanidine (Tizanidine HCl) 4 Mg Cap 4 Mg PO HS Lovastatin 10 Mg Tab 10 Mg PO HS [place] (Hydrocodone-Acetaminophen) 10-325 Mg Tab 1 Tab PO Q4-6H PRN Valium (Diazepam) 10 Mg Tab 10 Mg PO TID PRN Soma (Carisoprodol) 350 Mg Tab 350 Mg PO DAILY PRN Adderall Xr 24 HR (Amphetamine/Dextroamphetamine) 30 Mg Cap 60 Mg PO DAILY Once daily in the morning. Review of Systems Except as stated in HPI: all other systems reviewed are Neg Physical Exam Narrative GENERAL: Well-nourished, well-developed patient. SKIN: To left breast above areola there is a large area of ecchymosis noted that is tender HEAD: Normocephalic and atraumatic. EYES: No injection or drainage. ENT: No nasal drainage noted. NECK: Supple, trachea midline. CARDIOVASCULAR: Regular rate and rhythm RESPIRATORY: No increased effort. No accessory muscle use. NEUROLOGICAL: Awake and alert. Moves all extremities and sensory grossly within normal limits. Normal speech. Data Data Last Documented VS Vital Signs Date Time Temp Pulse Resp B/P (MAP) Pulse Ox O2 Delivery O2 Flow Rate FiO2 05/13/17 20:00 Room Air 05/13/17 19:12 98.0 94 16 139/68 (91) 99 Orders Orders Complete Blood Count With Diff (05/13/17 20:09) Basic Metabolic Panel (Bmp) (05/13/17 20:09) Iv Access Insert/Monitor (05/13/17 20:09) Ecg Monitoring (05/13/17 20:09) Oximetry (05/13/17 20:09) Type And Screen (05/13/17 20:09) Invasive Rad Dept Consult (05/13/17 20:12) Us Breast Unilateral (05/13/17 20:13) Morphine Inj (Morphine Inj) (05/13/17 20:30) Ondansetron Inj (Zofran Inj) (05/13/17 20:43) Ed Discharge Order (05/13/17 22:58) Labs Laboratory Tests Test 05/13/17 21:50 White Blood Count 11.4 TH/MM3 Red Blood Count 4.82 MIL/MM3 Hemoglobin 15.5 GM/DL Hematocrit 45.4 % Mean Corpuscular Volume 94.2 FL Mean Corpuscular Hemoglobin 32.2 PG Mean Corpuscular Hemoglobin Concent 34.2 % Red Cell Distribution Width 13.9 % Platelet Count 280 TH/MM3 Mean Platelet Volume 8.4 FL Neutrophils (%) (Auto) 74.8 % Lymphocytes (%) (Auto) 19.0 % Monocytes (%) (Auto) 5.6 % Eosinophils (%) (Auto) 0.1 % Basophils (%) (Auto) 0.5 % Neutrophils # (Auto) 8.5 TH/MM3 Lymphocytes # (Auto) 2.2 TH/MM3 Monocytes # (Auto) 0.6 TH/MM3 Eosinophils # (Auto) 0.0 TH/MM3 Basophils # (Auto) 0.1 TH/MM3 CBC Comment DIFF FINAL Differential Comment Blood Urea Nitrogen 10 MG/DL Creatinine 0.83 MG/DL Random Glucose 73 MG/DL Calcium Level 9.3 MG/DL Sodium Level 137 MEQ/L Potassium Level 3.5 MEQ/L Chloride Level 100 MEQ/L Carbon Dioxide Level 30.6 MEQ/L Anion Gap 6 MEQ/L Estimat Glomerular Filtration Rate 74 ML/MIN MDM Medical Decision Making Medical Screen Exam Complete: Yes Emergency Medical Condition: Yes Medical Record Reviewed: Yes (past history confirmed) Interpretation(s) CBC & BMP Diagram 05/13/17 21:50 Calcium Level 9.3 Last 24 hours Impressions Breast Ultrasound 05/13/172012 Signed Impressions: Service Date/Time: Saturday, May 13, 2017 20:59 - CONCLUSION: 1. Left breast hematoma measuring up to 5 cm in maximal width and about 1 cm in thickness. Findings were discussed with the patient. No active hemorrhage identified. No drainable fluid collections. Patient instructed to return to the emergency department if increasing pain or swelling occurs. Juwan Ji MD Differential Diagnosis Hematoma, bleed, anemia Narrative Course Will check blood work and discuss with radiologist Ultrasound added on and will provide morphine for pain Ultrasound shows hematoma, hemoglobin stable, Dr. Ji came in and evaluated patient and states she can go home Physician Communication Physician Communication dr ji states to check ultrasound and will see patient dr ji came and saw patient and states given ultrasound and exam if labs are normal can go home Diagnosis Primary Impression: Breast hematoma Patient Instructions: General Instructions Additional Instructions: tylenol as needed, follow with primary for recheck tuesday, return as needed Med/Other Pt SpecificInfo: No Change to Meds Disposition: 01 DISCHARGE HOME Condition: Stable Gillian Araiza MD May 13, 2017 20:19
[2017-05-13] MEDS ORDERED: MORPHINE SULFATE 4 MG/ML INJ IV PUSH ONE (20:30)
[2017-05-13] MEDS ORDERED: ONDANSETRON HCL 4 MG/2 ML VIAL ONE (20:43)
--- NOTE | 2017-05-13 21:57 | RADRPT ---
EXAM DATE/TIME: 05/13/2017 20:59 [facility] COMPARISON: No previous studies available for comparison. EXTERNAL COMPARISON : [facility], US BREAST, LEFT, April 21, 2017, MAMMOGRAM, LEFT BREAST W TOMOSYNTHESIS, Novem 2016, [facility], MAMMOGRAM, SCREENING W TOMOSYNTHESIS, April 19, 2017, MAMMOGRAM, SCREENING, May 19, 2007. INDICATIONS : Hematoma. MEDICAL HISTORY : Gastroesophageal reflux disease. Neck pain. Seizures. Migraine. Hypotension. Hiatal hernia. Urina ry tract infection. Arthritis. Anxiety. Depression. Brain tumor. SURGICAL HISTORY : Cholecystectomy. Appendectomy. Hysterectomy. Sinus surgery. Left breast biopsy. Spinal tap. ENCOUNTER: Initial ACUITY: 2 days PAIN SCORE: 8/10 LOCATION: Left breast. FINDINGS: There is a breast hematoma measuring up to about 5 cm in length and around 1 cm in thickness maximall y. No active hemorrhage identified. The hematoma appears to be clotted. CONCLUSION: 1. Left breast hematoma measuring up to 5 cm in maximal width and about 1 cm in thickness. Findings w ere discussed with the patient. No active hemorrhage identified. No drainable fluid collections. Tati ent instructed to return to the emergency department if increasing pain or swelling occurs. Juwan Avilez MD on May 13, 2017 at 21:53 Board Certified Radiologist. This report was verified electronically.
[2017-05-13 22:15] LABS: AUTOMATED NEUTROPHIL # 8.5 TH/MM3 (1.8-7.7); BASOPHIL # 0.1 TH/MM3 (0-0.2); BASOPHIL % 0.5 % (0.0-2.0); EOSINOPHIL % 0.1 % (0.0-4.0); HEMATOCRIT 45.4 % (35.0-46.0); HEMO FLAGS DIFF FINAL; LYMPHOCYTE # 2.2 TH/MM3 (1.0-4.8); MEAN CELL VOLUME 94.2 FL (80.0-100.0); MEAN CORPUSCULAR HEMOGLOBIN 32.2 PG (27.0-34.0); MEAN CORPUSCULAR HGB CONC 34.2 % (32.0-36.0); MONO % 5.6 % (0.0-8.0); NEUT % 74.8 % (16.0-70.0); PLATELET COUNT 280 TH/MM3 (150-450); RED BLOOD COUNT 4.82 MIL/MM3 (4.00-5.30); RED CELL DISTRIBUTION WIDTH 13.9 % (11.6-17.2); WHITE BLOOD COUNT 11.4 TH/MM3 (4.0-11.0)
[2017-05-13 22:47] LABS: BICARBONATE 30.6 MEQ/L (21.0-32.0); POTASSIUM 3.5 MEQ/L (3.5-5.1)
[2017-05-16] MEDS ORDERED: AUGM875T3 PO (11:34)
== END 2017-05-14 00:10 | disposition home or self-care (01) ==
LOC: NEPC 19:11
DX: S20.02XA Contusion of left breast, initial encounter (principal); M19.90 Unspecified osteoarthritis, unspecified site; F41.9 Anxiety disorder, unspecified; K21.9 Gastro-esophageal reflux disease without esophagitis; F90.9 Attention-deficit hyperactivity disorder, unspecified type; R56.9 Unspecified convulsions; X58.XXXA Exposure to other specified factors, initial encounter; Z79.899 Other long term (current) drug therapy; Z88.2 Allergy status to sulfonamides
CPT/HCPCS: 76642; 80048; 85025; 86850; 86900; 86901; 96374; 99285; J2270; J2405

== ENCOUNTER → 2017-07-05 | Day surgery (SDC) | payer BC, MEDICARE ==
[~2017-07-05] MED LIST changes: -AMOX-CLAV PO; +AUGM875T3 PO; +CYAN1000P IM; +MEPERIDINE HCL 50 MG/ML VIAL IV ONE; +MIDAZOLAM HCL 2 MG/2 ML VIAL IV ONE; +MORPHINE SULFATE PF 5 MG/10 ML VIAL IT ONE; +PRED20 PO; +PROPOFOL 200 MG/20 ML AMP IV ONE; +SODIUM CHLOR 0.9% 250 ML BAG IV ONE; +SODIUM CHLORIDE 0.9% INJ 100 ML ONE; +ceFAZolin INJ 1,000 MG VIAL ONE; +diphenhydrAMINE HCL 50 MG/ML VIAL IV ONE
--- NOTE | 2017-07-06 11:39 | M6 ---
cc: GERA IRWIN M.D. DATE 07/05/2017 DATE OF 1970 PROCEDURE Implantation of intrathecal catheter for continuous infusion of intrathecal morphine. PROCEDURE NOTE History and physical was completed and signed. Consent was signed. Procedure site was marked. Medications were listed and reconciled. Pain score was recorded. Allergies were noted. Timeout was taken. Fluoroscopy time was recorded where applicable. Sedation was administered or directed by Dr. Irwin. The patient was given oxygen. The patient was monitored by a registered nurse. Total procedure time was greater than 15 minutes. An IV was started, blood pressure cuff, pulse oximeter and EKG were applied. The consent forms were signed. The surgical site was marked. The patient was sedated with small amounts of Demerol and propofol titrated to effect. Vital signs were monitored and remained stable throughout the procedure. The lumbar area was prepped with alcohol and 10% Betadine, draped with sterile drapes. Fluoroscopy was used to visualize the L2-3 interlaminar space. The skin was infiltrated with 1% Xylocaine using a 27-gauge needle. Then an 18-gauge Tuohy needle was advanced under fluoroscopic guidance on the first attempt into the cerebral spinal fluid which was clear. Then a Portex catheter was threaded in a cephalad direction to vertebral bodies. Then a small incision was made around the needle. The stylet was removed and then the needle was removed. A tunneling device was placed in the small incision and tunneled to exit on the patient's left flank. Then the Portex catheter was threaded through the tunneling device to exit on the left flank. The small lumbar incision and the exit on the left flank was covered with antibiotic solution and sterile adhesive dressings. There was clear flow of cerebrospinal fluid through the entire catheter system. The patient was attached to a continuous infusion of morphine in a concentration of 0.01 mg/ml at a continuous initial rate of 1 mL an hour. She was taken to the recovery room with stable vital signs. W. MD ERNESTO BundyM/REMEDIOS /8:02 AM /11:22 AM
== END | disposition home or self-care (01) ==
LOC: PHSDC 06:38
PROVIDERS: ATTEND Pain Medicine Interventional Pain Medicine
DX: M54.5 Low back pain (principal); G89.29 Other chronic pain
CPT/HCPCS: 62350; 99152; 99153; C2626; J0690; J1200; J2175; J2250; J2274; J7050

== ENCOUNTER 2017-07-14 04:06 | Emergency (ER) | payer BC, MEDICARE ==
[~2017-07-14] VITALS: Ht 167.6 cm; Wt 85.0 kg
[~2017-07-14 04:06] MED LIST changes: -AUGM875T3 PO; -MEPERIDINE HCL 50 MG/ML VIAL IV ONE; -MIDAZOLAM HCL 2 MG/2 ML VIAL IV ONE; -MORPHINE SULFATE PF 5 MG/10 ML VIAL IT ONE; -PROPOFOL 200 MG/20 ML AMP IV ONE; -SODIUM CHLOR 0.9% 250 ML BAG IV ONE; -SODIUM CHLORIDE 0.9% INJ 100 ML ONE; -ceFAZolin INJ 1,000 MG VIAL ONE; -diphenhydrAMINE HCL 50 MG/ML VIAL IV ONE
[2017-07-14 04:07] VITALS: BP 138/73; PULSE 72; RESP 18; TEMP 97.7; O2SAT 99
[2017-07-14 04:22] VITALS: BP 142/67; PULSE 76; RESP 16; TEMP 98; O2SAT 98
[2017-07-14] MEDS ORDERED: SODIUM CHLOR 0.9% 1000 ML INJ 1,000 ML IV ONE ×2 (04:45→06:30)
--- NOTE | 2017-07-14 05:23 | PD ---
HPI Chief Complaint: Headache Time Seen by Provider: 04:36 Travel History International Travel<30 days: No Contact w/Intl Traveler<30days: No Traveled to known affect area: No History of Present Illness HPI 46-year-old female presents to the emergency department by private transportation for complaint of headache. Patient states she has a cerebral spinal fluid leak. Patient states yesterday her pain management doctor Dr. Irwin removed an Portex infusion catheter 07/13/17. Patient states since 3 PM she has had a severe headache. Patient contacted her physician who recommended that she take Excedrin and ibuprofen and Tylenol and come to the hospital morning to have an blood patch performed. Patient states overnight pain became intolerable so she decided come to the emergency room at this time. The patient has not reported any chills but reportedly had a fever of 101F around 11 PM last evening. Patient has had no headache except for when she sits upright no sore throat no earache no neck stiffness no chest pain no cough no congestion no shortness of breath no abdominal pain dysuria frequency urgency or diarrhea. Patient has had nausea. Patient states as long as she supine she has no headache pain as stated she is upright she has severe headache. Patient reports each time they change her infusion port or she has an epidural she has issues with severe headache related to cerebral spinal fluid leak and has had to have blood patch. Patient states she's been drinking plenty of fluids and drinking large amounts of caffeine. PFSH Past Medical History Narrative Medical Arthritis anxiety hypertension GERD insomnia migraines seizure lumbar fusion cholecystectomy multiple epidurals hysterectomy; occasional alcohol use; nursing notes reviewed Arthritis: Yes (DEGENERATIVE DISK DISEASE) Asthma: No Blood Disorders: No Anxiety: Yes Depression: No Heart Rhythm Problems: No Cancer: No Cardiovascular Problems: Yes (Hypotension ) High Cholesterol: No Chemotherapy: No Chest Pain: No Congestive Heart Failure: No COPD: No Cerebrovascular Accident: No Diabetes: No Diminished Hearing: No Endocrine: No Gastrointestinal Disorders: Yes (gastroesophageal reflux disease) GERD: Yes Headaches: Yes Hepatitis: No Hiatal Hernia: Yes Immune Disorder: No Insomnia: Yes Kidney Stones: No Medical other: Yes (chol) Musculoskeletal: Yes (back pain) Neurologic: Yes (headaches and back pain due to l2 to s1 fusion spine, HX: Sz ( resloved?)) Psychiatric: Yes (anxiety, ADHD) Reproductive: No Respiratory: Yes (seasonal allergies; sinus sx (last one 03/29) ) Migraines: Yes Radiation Therapy: No Renal Failure: No Seizures: Yes (migrainesne that she is aware of ) Sleep Apnea: No Thyroid Disease: No Ulcer: No Tetanus Vaccination: < 5 Years Influenza Vaccination: Yes ?: Not Past Surgical History AICD: No Appendectomy: Yes Arteriovenous Shunt: No Body Medical Devices: lumbar screws/pin Cardiac Surgery: No Cholecystectomy: Yes Ear Surgery: No Endocrine Surgery: No Eye Surgery: No Genitourinary Surgery: No Gynecologic Surgery: Yes (HYSTERECTOMY; L breast BX (05/12/17) w/o for breast CA vs Cystic breasts) Hysterectomy: Yes Insulin Pump: No Joint Replacement: No Neurologic Surgery: No Oral Surgery: No Pacemaker: No Thoracic Surgery: No Other Surgery: Yes (multiple spinal taps over years, dorsal puncture with drain and removal) Social History Alcohol Use: Yes (occasional) Tobacco Use: No Substance Use: No Allergies-Medications (Allergen,Severity, Reaction): Coded Allergies: haloperidol (Verified Allergy, Severe, Anaphylaxis, 07/14/17) ondansetron (Verified Allergy, Severe, Anaphylaxis, 07/14/17) prochlorperazine (Verified Allergy, Severe, Anaphylaxis, 07/14/17) ketorolac (Verified Allergy, Intermediate, SWELLOING ITCHING HIVES , ) tramadol (Verified Allergy, Intermediate, SWELLING ITCHING HIVES , 07/14/17) Sulfa (Sulfonamide Antibiotics) (Verified Allergy, Mild, Rash, 07/14/17) azithromycin (Verified Allergy, Mild, Rash, 07/14/17) droperidol (Verified Allergy, Mild, Rash, 07/14/17) nalbuphine (Verified Allergy, Mild, N/V, 07/14/17) Reported Meds & Prescriptions Reported Meds & Active Scripts Active Reported Cyanocobalamin Inj (Cyanocobalamin) 1,000 Mcg/Ml Inj 1 Ml IM WEEKLY Dextroamphetamine (Dextroamphetamine Sulfate) 10 Mg Tab 10 Mg PO BID PRN Ibuprofen 800 Mg Tab 800 Mg PO BID PRN Sucralfate 1 Gram Tab 1 Gm PO QID on empty stomach Dymista Nasal [place] (Azelastine-Fluticasone Nasal [place]) 137-50 Mcg [place] 1 [place] EACH NARE BID To each nostril. Zolpidem (Zolpidem Tartrate) 10 Mg Tab 10 Mg PO HS PRN Tizanidine (Tizanidine HCl) 4 Mg Cap 4 Mg PO HS Lovastatin 10 Mg Tab 10 Mg PO HS [place] (Hydrocodone-Acetaminophen) 10-325 Mg Tab 1 Tab PO Q4-6H PRN Valium (Diazepam) 10 Mg Tab 10 Mg PO TID PRN Soma (Carisoprodol) 350 Mg Tab 350 Mg PO DAILY PRN Adderall Xr 24 HR (Amphetamine/Dextroamphetamine) 30 Mg Cap 60 Mg PO DAILY Once daily in the morning. Review of Systems Except as stated in HPI: all other systems reviewed are Neg Physical Exam Narrative GENERAL: Well-developed well-nourished female in no acute distress no respiratory distress; GCS 15 SKIN: Warm and dry. HEAD: Normocephalic. EYES: No scleral icterus. No injection or drainage. NECK: Supple, trachea midline. No JVD or lymphadenopathy. CARDIOVASCULAR: Regular rate and rhythm without murmurs, gallops, or rubs. RESPIRATORY: Breath sounds equal bilaterally. No accessory muscle use. GASTROINTESTINAL: Abdomen soft, non-tender, nondistended. MUSCULOSKELETAL: No cyanosis, or edema. BACK: Nontender without obvious deformity. No CVA tenderness. Data Data Last Documented VS Vital Signs Date Time Temp Pulse Resp B/P (MAP) Pulse Ox O2 Delivery O2 Flow Rate FiO2 07/14/17 04:22 98.0 76 16 142/67 (92) 98 Room Air Orders Orders ^ Saline Lock (07/14/17 04:36) Complete Blood Count With Diff (07/14/17 04:36) Basic Metabolic Panel (Bmp) (07/14/17 04:36) Act Partial Throm Time (Ptt) (07/14/17 04:36) Prothrombin Time / Inr (Pt) (07/14/17 04:36) Sodium Chlor 0.9% 1000 Ml Inj (Ns 1000 M (07/14/17 04:45) Urinalysis - C+S If Indicated (07/14/17 04:41) Ed Urine Pregnancytest Poc (07/14/17 04:41) Morphine Inj (Morphine Inj) (07/14/17 06:00) Sodium Chlor 0.9% 1000 Ml Inj (Ns 1000 M (07/14/17 06:30) Metoclopramide Inj (Reglan Inj) (07/14/17 06:30) Diphenhydramine Inj (Benadryl Inj) (07/14/17 06:30) Labs Laboratory Tests Test 07/14/17 05:15 07/14/17 06:15 White Blood Count 5.4 TH/MM3 Red Blood Count 4.58 MIL/MM3 Hemoglobin 14.5 GM/DL Hematocrit 42.0 % Mean Corpuscular Volume 91.6 FL Mean Corpuscular Hemoglobin 31.7 PG Mean Corpuscular Hemoglobin Concent 34.6 % Red Cell Distribution Width 13.2 % Platelet Count 208 TH/MM3 Mean Platelet Volume 8.4 FL Neutrophils (%) (Auto) 46.1 % Lymphocytes (%) (Auto) 39.1 % Monocytes (%) (Auto) 10.5 % Eosinophils (%) (Auto) 3.4 % Basophils (%) (Auto) 0.9 % Neutrophils # (Auto) 2.5 TH/MM3 Lymphocytes # (Auto) 2.1 TH/MM3 Monocytes # (Auto) 0.6 TH/MM3 Eosinophils # (Auto) 0.2 TH/MM3 Basophils # (Auto) 0.0 TH/MM3 CBC Comment DIFF FINAL Differential Comment Prothrombin Time 10.2 SEC Prothromb Time International Ratio 1.0 RATIO Activated Partial Thromboplast Time 24.3 SEC Blood Urea Nitrogen 8 MG/DL Creatinine 0.76 MG/DL Random Glucose 98 MG/DL Calcium Level 8.4 MG/DL Sodium Level 141 MEQ/L Potassium Level 4.0 MEQ/L Chloride Level 109 MEQ/L Carbon Dioxide Level 25.6 MEQ/L Anion Gap 6 MEQ/L Estimat Glomerular Filtration Rate 82 ML/MIN Urine Color LIGHT-YELLOW Urine Turbidity CLEAR Urine pH 7.0 Urine Specific [place] 1.005 Urine Protein NEG mg/dL Urine Glucose (UA) NEG mg/dL Urine Ketones NEG mg/dL Urine Occult Blood NEG Urine Nitrite NEG Urine Bilirubin NEG Urine Urobilinogen LESS THAN 2.0 MG/DL Urine Leukocyte Esterase NEG Urine WBC LESS THAN 1 /hpf Urine Squamous Epithelial Cells 2 /hpf Urine Bacteria RARE /hpf Microscopic Urinalysis Comment CULT NOT INDICATED MDM Medical Decision Making Medical Screen Exam Complete: Yes Emergency Medical Condition: Yes Medical Record Reviewed: Yes Differential Diagnosis Cervical spinal fluid leak, epidural hematoma, epidural abscess, meningitis, UTI , influenza, viral syndrome Narrative Course IV access obtained specimens collected and sent for resulting 1 L normal saline administered additional liter NS 1 L along with Reglan and morphine sulfate 4mg iv patient c/o mild pruritus after morphine and states she forgot to share that she has a mild sensitivity to morphine therefore Benadryl 25 mg IV administered Patient's case discussed with on-call anesthesia regarding having a blood patch performed on this patient per Dr. George Irwin typically does his own blood patch however age and can stay in the ER and they will check on her between cases to perform a blood patch Call placed to Dr. Irwin @6:[address] Irwin ---> will arrange for her to have patch by him at [facility] today, staff will call back with dispo arrangements; care signed over to Dr Madden Physician Communication Physician Communication Discussed with anesthesia; call placed to Dr Irwin Diagnosis Primary Impression: Headache Additional Impression: Cerebrospinal fluid leak from spinal puncture Marla Lugo MD Jul 14, 2017 05:23
[2017-07-14 05:29] LABS: AUTOMATED NEUTROPHIL # 2.5 TH/MM3 (1.8-7.7); BASOPHIL % 0.9 % (0.0-2.0); EOSINOPHIL # 0.2 TH/MM3 (0-0.4); EOSINOPHIL % 3.4 % (0.0-4.0); HEMOGLOBIN 14.5 GM/DL (11.6-15.3); LYMPH % 39.1 % (9.0-44.0); LYMPHOCYTE # 2.1 TH/MM3 (1.0-4.8); MEAN CELL VOLUME 91.6 FL (80.0-100.0); MEAN CORPUSCULAR HEMOGLOBIN 31.7 PG (27.0-34.0); MEAN CORPUSCULAR HGB CONC 34.6 % (32.0-36.0); MEAN PLATELET VOLUME 8.4 FL (7.0-11.0); MONO % 10.5 % (0.0-8.0); MONOCYTE # 0.6 TH/MM3 (0-0.9); NEUT % 46.1 % (16.0-70.0); PLATELET COUNT 208 TH/MM3 (150-450); RED BLOOD COUNT 4.58 MIL/MM3 (4.00-5.30); RED CELL DISTRIBUTION WIDTH 13.2 % (11.6-17.2); WHITE BLOOD COUNT 5.4 TH/MM3 (4.0-11.0)
[2017-07-14 05:40] LABS: PROTHROMBIN TIME - PATIENT 10.2 SEC (9.8-11.6)
[2017-07-14 05:48] LABS: BICARBONATE 25.6 MEQ/L (21.0-32.0); CALCIUM 8.4 MG/DL (8.5-10.1); CREATININE 0.76 MG/DL (0.50-1.00)
[2017-07-14] MEDS ORDERED: MORPHINE SULFATE 2 MG/ML INJ IV PUSH ONE (06:00)
[2017-07-14] MEDS ORDERED: diphenhydrAMINE HCL 50 MG/ML VIAL IV PUSH ONE (06:30)
[2017-07-14] MEDS ORDERED: METOCLOPRAMIDE HCL 10 MG/2 ML VIAL IV PUSH ONE (06:30)
[2017-07-14 07:00] LABS: BACTERIA, URINE RARE /hpf; BILIRUBIN, URINE NEG (NEG); BLOOD, URINE NEG (NEG); GLUCOSE,URINE NEG (NEG); KETONE, URINE NEG (NEG); NITRITE,URINE NEG (NEG); SQUAMOUS EPITHELIAL CELL URINE 2 /hpf (0-5); URINE COLOR LIGHT-YELLOW (YELLW/STRAW); URINE LEUKOCYTE ESTERASE NEG (NEG)
--- NOTE | 2017-07-14 07:16 | PD ---
Physical Exam Narrative Patient was signed out to me by ED physician. Data Data Last Documented VS Vital Signs Date Time Temp Pulse Resp B/P (MAP) Pulse Ox O2 Delivery O2 Flow Rate FiO2 07/14/17 07:38 07/14/17 07:37 70 17 98 Room Air 07/14/17 04:22 98.0 Orders Orders ^ Saline Lock (07/14/17 04:36) Complete Blood Count With Diff (07/14/17 04:36) Basic Metabolic Panel (Bmp) (07/14/17 04:36) Act Partial Throm Time (Ptt) (07/14/17 04:36) Prothrombin Time / Inr (Pt) (07/14/17 04:36) Sodium Chlor 0.9% 1000 Ml Inj (Ns 1000 M (07/14/17 04:45) Urinalysis - C+S If Indicated (07/14/17 04:41) Ed Urine Pregnancytest Poc (07/14/17 04:41) Morphine Inj (Morphine Inj) (07/14/17 06:00) Sodium Chlor 0.9% 1000 Ml Inj (Ns 1000 M (07/14/17 06:30) Metoclopramide Inj (Reglan Inj) (07/14/17 06:30) Diphenhydramine Inj (Benadryl Inj) (07/14/17 06:30) Ed Discharge Order (07/14/17 07:14) Labs Laboratory Tests Test 07/14/17 05:15 07/14/17 06:15 White Blood Count 5.4 TH/MM3 Red Blood Count 4.58 MIL/MM3 Hemoglobin 14.5 GM/DL Hematocrit 42.0 % Mean Corpuscular Volume 91.6 FL Mean Corpuscular Hemoglobin 31.7 PG Mean Corpuscular Hemoglobin Concent 34.6 % Red Cell Distribution Width 13.2 % Platelet Count 208 TH/MM3 Mean Platelet Volume 8.4 FL Neutrophils (%) (Auto) 46.1 % Lymphocytes (%) (Auto) 39.1 % Monocytes (%) (Auto) 10.5 % Eosinophils (%) (Auto) 3.4 % Basophils (%) (Auto) 0.9 % Neutrophils # (Auto) 2.5 TH/MM3 Lymphocytes # (Auto) 2.1 TH/MM3 Monocytes # (Auto) 0.6 TH/MM3 Eosinophils # (Auto) 0.2 TH/MM3 Basophils # (Auto) 0.0 TH/MM3 CBC Comment DIFF FINAL Differential Comment Prothrombin Time 10.2 SEC Prothromb Time International Ratio 1.0 RATIO Activated Partial Thromboplast Time 24.3 SEC Blood Urea Nitrogen 8 MG/DL Creatinine 0.76 MG/DL Random Glucose 98 MG/DL Calcium Level 8.4 MG/DL Sodium Level 141 MEQ/L Potassium Level 4.0 MEQ/L Chloride Level 109 MEQ/L Carbon Dioxide Level 25.6 MEQ/L Anion Gap 6 MEQ/L Estimat Glomerular Filtration Rate 82 ML/MIN Urine Color LIGHT-YELLOW Urine Turbidity CLEAR Urine pH 7.0 Urine Specific [place] 1.005 Urine Protein NEG mg/dL Urine Glucose (UA) NEG mg/dL Urine Ketones NEG mg/dL Urine Occult Blood NEG Urine Nitrite NEG Urine Bilirubin NEG Urine Urobilinogen LESS THAN 2.0 MG/DL Urine Leukocyte Esterase NEG Urine WBC LESS THAN 1 /hpf Urine Squamous Epithelial Cells 2 /hpf Urine Bacteria RARE /hpf Microscopic Urinalysis Comment CULT NOT INDICATED MDM Supervised Visit with [facility]: No Narrative Course Dr. Irwin have the staff to call me and advised patient to go to [facility] to be seen by him and get a blood patch this morning. Diagnosis Primary Impression: Headache Additional Impression: Cerebrospinal fluid leak from spinal puncture Patient Instructions: General Instructions Additional Instruction: Follow-up with Dr. Irwin. Med/Other Pt SpecificInfo: No Change to Meds Disposition: 01 DISCHARGE HOME Condition: Stable Asim Madden MD Jul 14, 2017 07:16
[2017-07-14 07:37] VITALS: BP 132/62; PULSE 70; RESP 17; O2SAT 98
== END 2017-07-14 07:41 | disposition home or self-care (01) ==
LOC: NEPC 04:06
DX: R51 Headache (principal); G96.0 Cerebrospinal fluid leak; M19.90 Unspecified osteoarthritis, unspecified site; F41.9 Anxiety disorder, unspecified; I10 Essential (primary) hypertension; K21.9 Gastro-esophageal reflux disease without esophagitis; F90.9 Attention-deficit hyperactivity disorder, unspecified type; R56.9 Unspecified convulsions; G47.00 Insomnia, unspecified
CPT/HCPCS: 80048; 81001; 84703; 85025; 85610; 85730; 96361; 96374; 96375; 99284; J1200; J2270; J2765; J7030

== ENCOUNTER 2017-09-19 13:56 | Observation (INO) | payer BC, MEDICARE ==
[~2017-09-19] VITALS: Ht 170.2 cm; Wt 86.4 kg
[~2017-09-19 13:56] MED LIST changes: -PRED20 PO
[2017-09-19] MEDS ORDERED: GADODIAMIDE PF 287 MG/ML 5 ML VIAL (for RAD MRI) IVCONTRAST ONE (13:57)
[2017-09-19 14:32] VITALS: BP 165/77; PULSE 78; RESP 18; TEMP 98.5; O2SAT 99
[2017-09-19 17:59] LABS: BACTERIA, URINE RARE /hpf; BILIRUBIN, URINE NEG (NEG); BLOOD, URINE NEG (NEG); GLUCOSE,URINE NEG (NEG); KETONE, URINE NEG (NEG); MUCUS URINE FEW /lpf (OCC); NITRITE,URINE NEG (NEG); PH, URINE 5.5 (5.0-8.5); SQUAMOUS EPITHELIAL CELL URINE 4 /hpf (0-5); URINE COLOR LIGHT-YELLOW (YELLW/STRAW); URINE LEUKOCYTE ESTERASE NEG (NEG)
[2017-09-19 18:15] LABS: AUTOMATED NEUTROPHIL # 5.9 TH/MM3 (1.8-7.7); BASOPHIL # 0.1 TH/MM3 (0-0.2); BASOPHIL % 0.9 % (0.0-2.0); EOSINOPHIL % 0.5 % (0.0-4.0); HEMATOCRIT 42.9 % (35.0-46.0); HEMOGLOBIN 14.2 GM/DL (11.6-15.3); LYMPH % 24.4 % (9.0-44.0); MEAN CELL VOLUME 93.1 FL (80.0-100.0); MEAN CORPUSCULAR HEMOGLOBIN 30.9 PG (27.0-34.0); MEAN CORPUSCULAR HGB CONC 33.2 % (32.0-36.0); MONO % 3.8 % (0.0-8.0); MONOCYTE # 0.3 TH/MM3 (0-0.9); NEUT % 70.4 % (16.0-70.0); PLATELET COUNT 304 TH/MM3 (150-450); RED CELL DISTRIBUTION WIDTH 13.4 % (11.6-17.2); WHITE BLOOD COUNT 8.3 TH/MM3 (4.0-11.0)
[2017-09-19 18:25] LABS: PROTHROMBIN TIME - PATIENT 10.3 SEC (9.8-11.6)
[2017-09-19 18:33] LABS: BICARBONATE 24.9 MEQ/L (21.0-32.0); CALCIUM 8.4 MG/DL (8.5-10.1); CREATININE 0.81 MG/DL (0.50-1.00)
[2017-09-19 19:01] VITALS: O2SAT 98
--- NOTE | 2017-09-19 19:01 | PD ---
HPI . Back pain Chief Complaint: Back/ Neck Pain or Injury Time Seen by Provider: 18:06 Travel History International Travel<30 days: No Contact w/Intl Traveler<30days: No Traveled to known affect area: No History of Present Illness HPI This patient presents with back pain which has been getting progressively worse. She has developed bowel and bladder incontinence over the course of the last couple of weeks. She describes bilateral thigh numbness and bilateral lower extremity weakness. Her symptoms seem to have been exacerbated by 2 recent falls. She fell once and landed on her right hip and then fell again and landed on her left hip. She reports increasing neurological symptoms since the 2 falls. She denies any associated fever. She does not use IV drugs. Patient reports a history of chronic back pain. She reports several previous operations. She also reports several recent MRIs of her lumbar spine. These have been done at a few different locations. The first MRI report is from [facility] dated 02/17/16. The reason for that exam was history of spinal fusion with low back pain, right lower extremity weakness and incontinence. That MRI shows a failed fusion at L2-3 with hardware loosening suspected. The second MRI was done at [place] and is dated 09/01/17. The indication for that exam was low back pain with bilateral lumbar radiculopathy. That report indicates no acute findings. The third MRI was done at [facility] in [facility] and and is dated 09/05/17. Indication for that MRI was intractable low back pain. The results of that MRI was neural foraminal narrowing at L1-L2 and at L2-L3 with a similar appearance to previous MRI done on 09/07/16. She also had an MRI of her right hip done on 09/06/17 which shows a focal right labral tear, tendinitis of the gluteus medius and narrowing of the ischiofemoral distances bilaterally. The patient reports her pain is exacerbated by movement and walking. There have been no relieving factors. Symptoms have been progressively worsening for the last several weeks. PFSH Past Medical History Arthritis: Yes (DEGENERATIVE DISK DISEASE) Asthma: No Blood Disorders: No Anxiety: Yes Depression: No Heart Rhythm Problems: No Cancer: No Cardiovascular Problems: Yes (Hypotension ) High Cholesterol: No Chemotherapy: No Chest Pain: No Congestive Heart Failure: No COPD: No Cerebrovascular Accident: No Diabetes: No Diminished Hearing: No Endocrine: No Gastrointestinal Disorders: Yes (gastroesophageal reflux disease) GERD: Yes Headaches: Yes Hepatitis: No Hiatal Hernia: Yes Immune Disorder: No Insomnia: Yes Kidney Stones: No Musculoskeletal: Yes (back pain) Neurologic: Yes (headaches and back pain due to l2 to s1 fusion spine, HX: Sz ( resloved?)) Psychiatric: Yes (anxiety, ADHD) Reproductive: No Respiratory: Yes (seasonal allergies; sinus sx (last one 03/29) ) Migraines: Yes Radiation Therapy: No Renal Failure: No Seizures: Yes (migrainesne that she is aware of ) Sleep Apnea: No Thyroid Disease: No Ulcer: No ?: Not Past Surgical History AICD: No Appendectomy: Yes Arteriovenous Shunt: No Body Medical Devices: lumbar screws/pin Cardiac Surgery: No Cholecystectomy: Yes Ear Surgery: No Endocrine Surgery: No Eye Surgery: No Genitourinary Surgery: No Gynecologic Surgery: Yes (HYSTERECTOMY; L breast BX (05/12/17) w/o for breast CA vs Cystic breasts) Hysterectomy: Yes Insulin Pump: No Joint Replacement: No Neurologic Surgery: No Oral Surgery: No Pacemaker: No Thoracic Surgery: No Other Surgery: Yes (multiple spinal taps over years, dorsal puncture with drain and removal) Social History Alcohol Use: Yes (occasional) Tobacco Use: No Substance Use: No Allergies-Medications (Allergen,Severity, Reaction): Coded Allergies: haloperidol (Verified Allergy, Severe, Anaphylaxis, 07/14/17) ondansetron (Verified Allergy, Severe, Anaphylaxis, 07/14/17) prochlorperazine (Verified Allergy, Severe, Anaphylaxis, 07/14/17) ketorolac (Verified Allergy, Intermediate, SWELLOING ITCHING HIVES , ) tramadol (Verified Allergy, Intermediate, SWELLING ITCHING HIVES , 07/14/17) Sulfa (Sulfonamide Antibiotics) (Verified Allergy, Mild, Rash, 07/14/17) azithromycin (Verified Allergy, Mild, Rash, 07/14/17) droperidol (Verified Allergy, Mild, Rash, 07/14/17) nalbuphine (Verified Allergy, Mild, N/V, 07/14/17) Reported Meds & Prescriptions Reported Meds & Active Scripts Active Reported Cyanocobalamin Inj (Cyanocobalamin) 1,000 Mcg/Ml Inj 1 Ml IM WEEKLY Dextroamphetamine (Dextroamphetamine Sulfate) 10 Mg Tab 10 Mg PO BID PRN Ibuprofen 800 Mg Tab 800 Mg PO BID PRN Sucralfate 1 Gram Tab 1 Gm PO QID on empty stomach Dymista Nasal [place] (Azelastine-Fluticasone Nasal [place]) 137-50 Mcg [place] 1 [place] EACH NARE BID To each nostril. Zolpidem (Zolpidem Tartrate) 10 Mg Tab 10 Mg PO HS PRN Tizanidine (Tizanidine HCl) 4 Mg Cap 4 Mg PO HS Lovastatin 10 Mg Tab 10 Mg PO HS [place] (Hydrocodone-Acetaminophen) 10-325 Mg Tab 1 Tab PO Q4-6H PRN Valium (Diazepam) 10 Mg Tab 10 Mg PO TID PRN Soma (Carisoprodol) 350 Mg Tab 350 Mg PO DAILY PRN Adderall Xr 24 HR (Amphetamine/Dextroamphetamine) 30 Mg Cap 60 Mg PO DAILY Once daily in the morning. Review of Systems Except as stated in HPI: all other systems reviewed are Neg General / Constitutional: No: Fever, Chills Musculoskeletal: Positive: Pain (Back pain) Neurologic: Positive: Weakness, Incontinence, Sensory Disturbance Physical Exam Narrative GENERAL: Awake and alert and in no acute distress. The patient appears angry. SKIN: Warm and dry. HEAD: Normocephalic/atraumatic. EYES: Pupils are equal. Extraocular movements are intact. NECK: Normal range of motion. RESPIRATORY: Nonlabored respirations. MUSCULOSKELETAL: Atraumatic. NEUROLOGICAL: She has difficulty lifting her right lower extremity up off the stretcher secondary to hip pain. I do not appreciate any muscular atrophy in her lower extremities. PSYCHIATRIC: Appropriate mood and affect. Data Data Last Documented VS Vital Signs Date Time Temp Pulse Resp B/P (MAP) Pulse Ox O2 Delivery O2 Flow Rate FiO2 09/19/17 14:32 98.5 78 18 165/77 (106) 99 Orders Orders Complete Blood Count With Diff (09/19/17 14:36) Basic Metabolic Panel (Bmp) (09/19/17 14:36) Act Partial Throm Time (Ptt) (09/19/17 14:36) Prothrombin Time / Inr (Pt) (09/19/17 14:36) Urinalysis - C+S If Indicated (09/19/17 14:36) Mri L Spine W/O Contrast (09/19/17 18:24) Labs Laboratory Tests Test 09/19/17 17:22 09/19/17 17:39 Urine Color LIGHT-YELLOW Urine Turbidity CLEAR Urine pH 5.5 Urine Specific [place] 1.007 Urine Protein NEG mg/dL Urine Glucose (UA) NEG mg/dL Urine Ketones NEG mg/dL Urine Occult Blood NEG Urine Nitrite NEG Urine Bilirubin NEG Urine Urobilinogen LESS THAN 2.0 MG/DL Urine Leukocyte Esterase NEG Urine RBC 1 /hpf Urine WBC LESS THAN 1 /hpf Urine Squamous Epithelial Cells 4 /hpf Urine Bacteria RARE /hpf Urine Mucus FEW /lpf Microscopic Urinalysis Comment CULT NOT INDICATED White Blood Count 8.3 TH/MM3 Red Blood Count 4.60 MIL/MM3 Hemoglobin 14.2 GM/DL Hematocrit 42.9 % Mean Corpuscular Volume 93.1 FL Mean Corpuscular Hemoglobin 30.9 PG Mean Corpuscular Hemoglobin Concent 33.2 % Red Cell Distribution Width 13.4 % Platelet Count 304 TH/MM3 Mean Platelet Volume 8.0 FL Neutrophils (%) (Auto) 70.4 % Lymphocytes (%) (Auto) 24.4 % Monocytes (%) (Auto) 3.8 % Eosinophils (%) (Auto) 0.5 % Basophils (%) (Auto) 0.9 % Neutrophils # (Auto) 5.9 TH/MM3 Lymphocytes # (Auto) 2.0 TH/MM3 Monocytes # (Auto) 0.3 TH/MM3 Eosinophils # (Auto) 0.0 TH/MM3 Basophils # (Auto) 0.1 TH/MM3 CBC Comment DIFF FINAL Differential Comment Prothrombin Time 10.3 SEC Prothromb Time International Ratio 1.0 RATIO Activated Partial Thromboplast Time 23.6 SEC Blood Urea Nitrogen 7 MG/DL Creatinine 0.81 MG/DL Random Glucose 88 MG/DL Calcium Level 8.4 MG/DL Sodium Level 139 MEQ/L Potassium Level 3.5 MEQ/L Chloride Level 108 MEQ/L Carbon Dioxide Level 24.9 MEQ/L Anion Gap 6 MEQ/L Estimat Glomerular Filtration Rate 76 ML/MIN [facility] Medical Decision Making Medical Screen Exam Complete: Yes Emergency Medical Condition: Yes Differential Diagnosis Differential diagnosis includes but is not limited to muscular low back pain, DDD, spinal stenosis, epidural abscess, sciatica, kidney infection or stone. Narrative Course This patient presents with back pain, bilateral lower extremity weakness, bowel and bladder incontinence. MRI of her back has been ordered. Her care is being turned over to Dr. Aguirre at change of shift. Anna Obrien MD Sep 19, 2017 19:01
--- NOTE | 2017-09-19 19:44 | PD ---
Data Data Last Documented VS Vital Signs Date Time Temp Pulse Resp B/P (MAP) Pulse Ox O2 Delivery O2 Flow Rate FiO2 09/19/17 19:01 98 Room Air 09/19/17 14:32 98.5 78 18 165/77 (106) Orders Orders Complete Blood Count With Diff (09/19/17 14:36) Basic Metabolic Panel (Bmp) (09/19/17 14:36) Act Partial Throm Time (Ptt) (09/19/17 14:36) Prothrombin Time / Inr (Pt) (09/19/17 14:36) Urinalysis - C+S If Indicated (09/19/17 14:36) Mri L Spine W&W/O Contrast (09/19/17 18:24) Vascular Access Team Consult/P PRN (09/19/17 19:43) Vascular Poc Ultrasound (09/19/17 ) Lorazepam (Ativan) (09/19/17 19:45) Lorazepam Inj (Ativan Inj) (09/19/17 20:45) Mri T Spine W/O Contrast (09/19/17 ) Gadodiamide Pf Inj (Omniscan Pf Inj) (09/19/17 13:57) Morphine Inj (Morphine Inj) (09/19/17 22:00) Sodium Chlor 0.9% 1000 Ml Inj (Ns 1000 M (09/19/17 22:00) Admit Order (Ed Use Only) (09/19/17 22:16) Labs Laboratory Tests Test 09/19/17 17:22 09/19/17 17:39 Urine Color LIGHT-YELLOW Urine Turbidity CLEAR Urine pH 5.5 Urine Specific Carver 1.007 Urine Protein NEG mg/dL Urine Glucose (UA) NEG mg/dL Urine Ketones NEG mg/dL Urine Occult Blood NEG Urine Nitrite NEG Urine Bilirubin NEG Urine Urobilinogen LESS THAN 2.0 MG/DL Urine Leukocyte Esterase NEG Urine RBC 1 /hpf Urine WBC LESS THAN 1 /hpf Urine Squamous Epithelial Cells 4 /hpf Urine Bacteria RARE /hpf Urine Mucus FEW /lpf Microscopic Urinalysis Comment CULT NOT INDICATED White Blood Count 8.3 TH/MM3 Red Blood Count 4.60 MIL/MM3 Hemoglobin 14.2 GM/DL Hematocrit 42.9 % Mean Corpuscular Volume 93.1 FL Mean Corpuscular Hemoglobin 30.9 PG Mean Corpuscular Hemoglobin Concent 33.2 % Red Cell Distribution Width 13.4 % Platelet Count 304 TH/MM3 Mean Platelet Volume 8.0 FL Neutrophils (%) (Auto) 70.4 % Lymphocytes (%) (Auto) 24.4 % Monocytes (%) (Auto) 3.8 % Eosinophils (%) (Auto) 0.5 % Basophils (%) (Auto) 0.9 % Neutrophils # (Auto) 5.9 TH/MM3 Lymphocytes # (Auto) 2.0 TH/MM3 Monocytes # (Auto) 0.3 TH/MM3 Eosinophils # (Auto) 0.0 TH/MM3 Basophils # (Auto) 0.1 TH/MM3 CBC Comment DIFF FINAL Differential Comment Prothrombin Time 10.3 SEC Prothromb Time International Ratio 1.0 RATIO Activated Partial Thromboplast Time 23.6 SEC Blood Urea Nitrogen 7 MG/DL Creatinine 0.81 MG/DL Random Glucose 88 MG/DL Calcium Level 8.4 MG/DL Sodium Level 139 MEQ/L Potassium Level 3.5 MEQ/L Chloride Level 108 MEQ/L Carbon Dioxide Level 24.9 MEQ/L Anion Gap 6 MEQ/L Estimat Glomerular Filtration Rate 76 ML/MIN [facility] Medical Record Reviewed: Yes Supervised Visit with YUMI: No Interpretation(s) Last Impressions Lumbar Spine MRI 09/19/17 1824 Signed Impressions: Service Date/Time: Tuesday, September 19, 2017 20:46 - CONCLUSION: 1. Postoperative fusion as above. No acute fracture or spondylolisthesis. There is epidural lipomatosis which is similar to January 2016. No bony canal stenosis. No abnormal enhancing lesions post contrast. No direct nerve root compression is seen. Juwan Avilez MD Thoracic Spine MRI 09/19/17 0000 Signed Impressions: Service Date/Time: Tuesday, September 19, 2017 20:46 - CONCLUSION: Normal examination for a patient of this age. Juwan Avilez MD Narrative Course During the course of the patient's emergency department visit, the patient's history, examination, and differential diagnosis were reviewed with the patient. The patient was placed on a environmental monitoring specialist with oximetry and frequent blood pressure monitoring. The patient had IV access obtained and blood work sent for analysis. The patient's case was checked out to me by Dr. Obrien. Please see her complete history and physical. The patient's case was checked out to me at the conclusion of her shift. Apparently IV access was difficult to obtain in this patient, therefore laboratory studies were done by straight stick. The patient however now needs MRI with and without contrast, therefore the vascular access team was consulted for IV placement. The patient presents with a history of chronic low back pain that is been worse recently with 2 recent falls and reports of increasing lower extremity weakness associated with bowel bladder incontinence. The patient is followed by Dr. Irwin for her pain management. The patient reports a prior history of lumbar fusion that has reportedly failed. Patient had an EKG done that shows a sinus rhythm heart rate is 71, QRS duration 73 ms, QTC 6 ms, no acute ST segment elevation. The patient was initially provided Ativan 1 mg p.o. 1 for anxiety related to MRI. She reports a history of claustrophobia. The patient's laboratory studies were reviewed and remarkable for a white count of 8.3, hemoglobin 14.2, platelets 304 with 70.4 neutrophils, BMP is remarkable for chloride of 108, GFR 76, calcium 8.4, PT 10.3, PTT 23.6, urinalysis is unremarkable. An MRI of the T-spine with and without contrast, lumbar spine with and without contrast has been ordered to evaluate for possible cord compression, versus cauda equina syndrome. Radiology studies were reviewed and remarkable for an MRI of the T-spine that showed a normal examination for a patient of this age. Lumbar spine MRI shows postoperative fusion, no acute fracture or spondylolisthesis. There is epidural leiomyomatosis which is similar to January 2016. No bony canal stenosis. No abnormal enhancing lesions postcontrast. No direct nerve root compression is seen. Given the patient's symptoms of increased lower extremity weakness, bowel and bladder incontinence the patient will be admitted to the hospital for continued evaluation, pain management, and neurosurgical consultation The patient's results were discussed with the patient, including the plan of care. I explained that further testing and/ or monitoring is indicated based on the patient's history, examination, and/ or laboratory findings. Therefore, I recommended admission for additional evaluation. The patient expressed understanding and was agreeable with this plan. The patient was admitted to the hospital in guarded condition and sent to a bed under the care of the [facility]. Physician Communication Physician Communication The patient's case including history, pertinent physical examination findings, and laboratory studies were discussed with Dr. Pereira. It was agreed that the patient would be admitted to the [facility] service. Diagnosis Primary Impression: Acute exacerbation of chronic low back pain Additional Impressions: Lower extremity weakness Qualified Codes: R29.898 - Other symptoms and signs involving the musculoskeletal system Bowel and bladder incontinence Admitting Information Admitting Physician Requests: Observation Marce Aguirre MD Sep 19, 2017 19:44
[2017-09-19] MEDS ORDERED: LORazepam 1 MG TAB PO ONE (19:45)
[2017-09-19] MEDS ORDERED: LORazepam 2 MG/ML VIAL IV PUSH ONE (20:45)
--- NOTE | 2017-09-19 21:43 | RADRPT ---
EXAM DATE/TIME: 09/19/2017 20:46 [facility] COMPARISON: No previous studies available for comparison. INDICATIONS : Pain. MEDICAL HISTORY : Low blood pressure. SURGICAL HISTORY : Discectomy, lumbar. Fusion, lumbar. Cholecystectomy. Knee sx, Foot sx, Stimulator placed and removed, Shoulder sx. ENCOUNTER: Initial ACUITY: > 1 year PAIN SCORE: 10/10 LOCATION: Bilateral mid back region. TECHNIQUE: Multiplanar multisequence MRI of the thoracic spine was performed. FINDINGS: VERTEBRA: Normal vertebral body height. Homogeneous marrow signal. ALIGNMENT: Normal. CORD: Normal position and configuration. T1-T2: Normal. T2-T3: The thecal sac has a normal diameter. No evidence of disc bulge or protrusion. T3-T4: The thecal sac has a normal diameter. No evidence of disc bulge or protrusion. T4-T5: The thecal sac has a normal diameter. No evidence of disc bulge or protrusion. T5-T6: The thecal sac has a normal diameter. No evidence of disc bulge or protrusion. T6-T7: The thecal sac has a normal diameter. No evidence of disc bulge or protrusion. T7-T8: The thecal sac has a normal diameter. No evidence of disc bulge or protrusion. T8-T9: The thecal sac has a normal diameter. No evidence of disc bulge or protrusion. T9-T10: The thecal sac has a normal diameter. No evidence of disc bulge or protrusion. T10-T11: The thecal sac has a normal diameter. No evidence of disc bulge or protrusion. T11-T12: The thecal sac has a normal diameter. No evidence of disc bulge or protrusion. T12-L1: The thecal sac has a normal diameter. No evidence of disc bulge or protrusion. CONCLUSION: Normal examination for a patient of this age. Juwan Avilez MD on September 19, 2017 at 21:38 Board Certified Radiologist. This report was verified electronically.
--- NOTE | 2017-09-19 21:49 | RADRPT ---
EXAM DATE/TIME: 09/19/2017 20:46 [facility] COMPARISON: No previous studies available for comparison. EXTERNAL COMPARISON : [facility], September 01, 2017 INDICATIONS : Radiculopathy. CONTRAST: 17 cc Omniscan (gadodiamide) IV MEDICAL HISTORY : Low blood pressure. SURGICAL HISTORY : Discectomy, lumbar. Fusion, lumbar. Cholecystectomy. Shoulder sx, Knee sx, Stimulator put in and marli irma. ENCOUNTER: Initial ACUITY: > 1 year PAIN SCORE: 10/10 LOCATION: Bilateral lower back region,. TECHNIQUE: Multiplanar multisequence MRI of the lumbar spine was performed with and without contrast. FINDINGS: Interbody fusion at L3-4 and L5-S1 with screw fragments present in S1 bilaterally. There is no bony c entral canal stenosis. There is some epidural lipomatosis which appears similar to the CT exam from A ugust 2015. This does result in mild effacement of the thecal sac inferiorly the lumbosacral junction . Posterior elements are fused from L3-S1. There is no fracture or spondylolisthesis. No direct nerve root compression is identified. Conus medullaris appears intact. No abnormal enhancing lesions withi n the canal postcontrast. CONCLUSION: 1. Postoperative fusion as above. No acute fracture or spondylolisthesis. There is epidural lipomatos is which is similar to January 2016. No bony canal stenosis. No abnormal enhancing lesions post contra st. No direct nerve root compression is seen. Juwan Avilez MD on September 19, 2017 at 21:41 Board Certified Radiologist. This report was verified electronically.
[2017-09-19] MEDS ORDERED: SODIUM CHLOR 0.9% 1000 ML INJ 1,000 ML IV SCH (22:00)
[2017-09-19] MEDS ORDERED: MORPHINE SULFATE 4 MG/ML INJ IV PUSH ONE (22:00)
[2017-09-20] MEDS: SODIUM CHLOR 0.9% 1000 ML INJ 1,000 ML IV SCH ×3 (00:27→21:53)
[2017-09-20] MEDS ORDERED: SODIUM CHLORIDE 0.9% FLUSH 10 ML FLUSH IV FLUSH PRN (00:30)
[2017-09-20] MEDS ORDERED: MAGNESIUM HYDROXIDE SUSP 30 ML CUP PO PRN (00:30)
[2017-09-20] MEDS ORDERED: LACTULOSE SYRUP 20 GM/30 ML CUP PO PRN (00:30)
[2017-09-20] MEDS ORDERED: SENNOSIDES 8.6 MG TAB PO PRN (00:30)
[2017-09-20] MEDS ORDERED: NALOXONE HCL 0.4 MG/ML AMP IV PUSH PRN (00:30)
[2017-09-20] MEDS ORDERED: BISACODYL 10 MG SUPP RECTAL PRN (00:30)
[2017-09-20] MEDS ORDERED: CARISOPRODOL 350 MG TAB PO PRN (00:30)
--- NOTE | 2017-09-20 00:40 | HHI.HP ---
HPI Service [facility] Primary Care Physician Cedric Christianson MD (Paul) Admission Diagnosis Back pain with leg weakness and incontinence Diagnoses: Travel History International Travel<30 Days: No Contact w/Intl Traveler <30 Da: No Traveled to Known Affected Are: No History of Present Illness 47-year-old female with a past medical history significant for chronic back pain status post multiple surgeries presents to the emergency department for evaluation of lower extremity weakness and incontinence of bowel/bladder. The patient has her pain managed by Dr. Gallardo and her epidural injections done by Dr. Irwin. She reports that for the past 2 weeks she has been having increasing lower extremity weakness where she has required a walker to get around. She reports that her legs keep "giving out" on her. She endorses bilateral hip pain, right greater than left. She states the pain in her hips radiates down the backs of her legs to her knees. She reports new onset loss of bowel and bladder continence over the past 4 days. She had another reported episode of incontinence of urine while in the emergency department. The patient denies any chest pain or shortness of breath. No abdominal pain. No nausea/vomiting/diarrhea. Review of Systems Except as stated in HPI: all other systems reviewed are Neg Past Family Social History Past Medical History GERD Anxiety Hyperlipidemia Chronic back pain Past Surgical History Discectomy L3-S1 fusion, failed and repaired L2-L3 fusion, failed and repaired Multiple epidural injections Spinal stimulator Pain pump (not currently active) Hysterectomy Cholecystectomy Appendectomy Shoulder surgery Knee surgery 2 Right foot surgery Reported Medications Reported Meds & Active Scripts Active Reported Cyanocobalamin Inj (Cyanocobalamin) 1,000 Mcg/Ml Inj 1 Ml IM WEEKLY Dextroamphetamine (Dextroamphetamine Sulfate) 10 Mg Tab 10 Mg PO BID PRN Ibuprofen 800 Mg Tab 800 Mg PO BID PRN Sucralfate 1 Gram Tab 1 Gm PO QID on empty stomach Dymista Nasal [place] (Azelastine-Fluticasone Nasal [place]) 137-50 Mcg [place] 1 [place] EACH NARE BID To each nostril. Zolpidem (Zolpidem Tartrate) 10 Mg Tab 10 Mg PO HS PRN Tizanidine (Tizanidine HCl) 4 Mg Cap 4 Mg PO HS Lovastatin 10 Mg Tab 10 Mg PO HS Valmora (Hydrocodone-Acetaminophen) 10-325 Mg Tab 1 Tab PO Q4-6H PRN Valium (Diazepam) 10 Mg Tab 10 Mg PO TID PRN Soma (Carisoprodol) 350 Mg Tab 350 Mg PO DAILY PRN Adderall Xr 24 HR (Amphetamine/Dextroamphetamine) 30 Mg Cap 60 Mg PO DAILY Once daily in the morning. Allergies: Coded Allergies: haloperidol (Verified Allergy, Severe, Anaphylaxis, 09/19/17) ondansetron (Verified Allergy, Severe, Anaphylaxis, 09/19/17) prochlorperazine (Verified Allergy, Severe, Anaphylaxis, 09/19/17) ketorolac (Verified Allergy, Intermediate, SWELLOING ITCHING HIVES , ) tramadol (Verified Allergy, Intermediate, SWELLING ITCHING HIVES , 09/19/17) Sulfa (Sulfonamide Antibiotics) (Verified Allergy, Mild, Rash, 09/19/17) azithromycin (Verified Allergy, Mild, Rash, 09/19/17) droperidol (Verified Allergy, Mild, Rash, 09/19/17) nalbuphine (Verified Allergy, Mild, N/V, 09/19/17) Family History Negative for CAD/DM Social History Rare alcohol. Denies tobacco and illicit drugs. Physical Exam Vital Signs Vital Signs Date Time Temp Pulse Resp B/P (MAP) Pulse Ox O2 Delivery O2 Flow Rate FiO2 09/19/17 22:45 20 09/19/17 19:01 98 Room Air 09/19/17 14:32 98.5 78 18 165/77 (106) 99 Physical Exam GENERAL: female sitting up in bed SKIN: No rashes, ecchymoses or lesions. Cool and dry. HEAD: Atraumatic. Normocephalic. No temporal or scalp tenderness. EYES: Pupils equal round and reactive. Extraocular motions intact. No scleral icterus. No injection or drainage. ENT: Nose without bleeding, purulent drainage or septal hematoma. Throat without erythema, tonsillar hypertrophy or exudate. Uvula midline. Airway patent. NECK: Trachea midline. No JVD or lymphadenopathy. Supple, nontender, no meningeal signs. CARDIOVASCULAR: Regular rate and rhythm without murmurs, gallops, or rubs. RESPIRATORY: Clear to auscultation. Breath sounds equal bilaterally. No wheezes , rales, or rhonchi. GASTROINTESTINAL: Abdomen soft, non-tender, nondistended. No hepato-splenomegaly , or palpable masses. No guarding. MUSCULOSKELETAL: Extremities without clubbing, cyanosis, or edema. No joint tenderness, effusion, or edema noted. No calf tenderness. Negative Homans sign bilaterally. NEUROLOGICAL: Awake and alert. Cranial nerves II through XII intact. Bilateral lower extremity decreased sensation. Right lower extremity exam limited secondary to right hip pain. 5/5 left lower extremity strength. Laboratory Laboratory Tests Test 09/19/17 17:22 09/19/17 17:39 Urine Color LIGHT-YELLOW Urine Turbidity CLEAR Urine pH 5.5 Urine Specific [place] 1.007 Urine Protein NEG Urine Glucose (UA) NEG Urine Ketones NEG Urine Occult Blood NEG Urine Nitrite NEG Urine Bilirubin NEG Urine Urobilinogen LESS THAN 2.0 Urine Leukocyte Esterase NEG Urine RBC 1 Urine WBC LESS THAN 1 Urine Squamous Epithelial Cells 4 Urine Bacteria RARE Urine Mucus FEW Microscopic Urinalysis Comment CULT NOT INDICATED White Blood Count 8.3 Red Blood Count 4.60 Hemoglobin 14.2 Hematocrit 42.9 Mean Corpuscular Volume 93.1 Mean Corpuscular Hemoglobin 30.9 Mean Corpuscular Hemoglobin Concent 33.2 Red Cell Distribution Width 13.4 Platelet Count 304 Mean Platelet Volume 8.0 Neutrophils (%) (Auto) 70.4 Lymphocytes (%) (Auto) 24.4 Monocytes (%) (Auto) 3.8 Eosinophils (%) (Auto) 0.5 Basophils (%) (Auto) 0.9 Neutrophils # (Auto) 5.9 Lymphocytes # (Auto) 2.0 Monocytes # (Auto) 0.3 Eosinophils # (Auto) 0.0 Basophils # (Auto) 0.1 CBC Comment DIFF FINAL Differential Comment Prothrombin Time 10.3 Prothromb Time International Ratio 1.0 Activated Partial Thromboplast Time 23.6 Blood Urea Nitrogen 7 Creatinine 0.81 Random Glucose 88 Calcium Level 8.4 Sodium Level 139 Potassium Level 3.5 Chloride Level 108 Carbon Dioxide Level 24.9 Anion Gap 6 Estimat Glomerular Filtration Rate 76 Result Diagram: 09/19/17 1739 09/19/171738 Caprini VTE Risk Assessment Caprini VTE Risk Assessment: No/Low Risk (score <= 1) Caprini Risk Assessment Model Point Value = 1 Point Value = 2 Point Value = 3 Point Value = 5 Age 41-60 Minor surgery BMI > 25 kg/m2 Swollen legs Varicose veins or History of unexplained or recurrent spontaneous Oral contraceptives or hormone replacement Sepsis (< 1 month) Serious lung disease, including pneumonia (< 1 month) Abnormal pulmonary function Acute myocardial infarction Congestive heart failure (< 1 month) History of inflammatory bowel disease Medical patient at bed rest Age 61-74 Arthroscopic surgery Major open surgery (> 45 min) Laparoscopic surgery (> 45 min) Malignancy Confined to bed (> 72 hours) Immobilizing plaster cast Central venous access Age >= 75 History of VTE Family history of VTE Factor V Leiden Prothrombin [id number] Lupus anticoagulant Anticardiolipin antibodies Elevated serum homocysteine Heparin-induced thrombocytopenia Other congenital or acquired thrombophilia Stroke (< 1 month) Elective arthroplasty Hip, pelvis, or leg fracture Acute spinal cord injury (< 1 month) Prophylaxis Regimen Total Risk Factor Score Risk Level Prophylaxis Regimen 0-1 Low Early ambulation 2 Moderate Order ONE of the following: *Sequential Compression Device (SCD) *Heparin 5000 units SQ BID 3-4 Higher Order ONE of the following medications: *Heparin 5000 units SQ TID *Enoxaparin/Lovenox 40 mg SQ daily (WT < 150 kg, CrCl > 30 mL/min) *Enoxaparin/Lovenox 30 mg SQ daily (WT < 150 kg, CrCl > 10-29 mL/min) *Enoxaparin/Lovenox 30 mg SQ BID (WT < 150 kg, CrCl > 30 mL/min) AND/OR *Sequential Compression Device (SCD) 5 or more Highest Order ONE of the following medications: *Heparin 5000 units SQ TID (Preferred with Epidurals) *Enoxaparin/Lovenox 40 mg SQ daily (WT < 150 kg, CrCl > 30 mL/min) *Enoxaparin/Lovenox 30 mg SQ daily (WT < 150 kg, CrCl > 10-29 mL/min) *Enoxaparin/Lovenox 30 mg SQ BID (WT < 150 kg, CrCl > 30 mL/min) AND *Sequential Compression Device (SCD) Assessment and Plan Assessment and Plan Assessment/plan: 1. Intractable back pain/bowel/bladder incontinence Lumbar and thoracic spine MRI showed no direct nerve root compression or acute findings, imaging stable from January 2016 Given the severity of patient's symptoms, neurosurgery consulted, appreciate recommendations Continue home pain medication regimen Physical therapy consulted, appreciate assistance 2. Hyperlipidemia/GERD Continue home medications FEN NPO Electrolytes: monitor and replete prn NS at 100 cc/hr Shira Pereira MD Sep 20, 2017 00:40
[2017-09-20] MEDS: ACETAMINOPHEN/HYDROcodone 325 MG/10 MG TAB PO PRN ×4 (00:50→14:07)
[2017-09-20] MEDS: ZOLPIDEM TARTRATE 10 MG TAB PO PRN ×2 (02:19→21:10)
[2017-09-20 02:24] VITALS: BP 124/80; PULSE 61; RESP 20; TEMP 96.7; O2SAT 98
[2017-09-20] MEDS ORDERED: LORazepam 2 MG/ML VIAL IV PUSH ONE (04:30)
[2017-09-20 08:00] VITALS: BP 99/52; PULSE 64; RESP 16; TEMP 96.5; O2SAT 98
--- NOTE | 2017-09-20 08:04 | EKG ---
Date Performed: 09/19/2017 Time Performed: 23:05:14 PTAGE: 47 years EKG: Sinus rhythm NORMAL ECG NO PREVIOUS TRACING DOCTOR: Cedric Stephens Interpretating Date/Time 09/20/2017 08:02:51
[2017-09-20] MEDS: SODIUM CHLORIDE 0.9% FLUSH 10 ML FLUSH IV FLUSH SCH ×2 (09:00→21:00)
[2017-09-20] MEDS: DOCUSATE SODIUM 50 MG/SENNA 8.6 MG TAB PO SCH ×2 (09:00→21:10)
--- NOTE | 2017-09-20 09:06 | PD.CONS ---
HPI Consult Requested By Primary Care Physician Cedric Christianson MD (Paul) History of Present Illness This is a 47-year-old female with history of chronic, intractable back pain status post multiple surgeries by Frederick Mcdaniels, at [facility], who presents to the emergency department for evaluation of lower extremity weakness and incontinence of bowel/bladder. She reports her pain has been managed by Dr. Gallardo and by Dr. Irwin. She has had multiple epidural steroid injections, as a trial of morphine pump without relief of her pain. She has had decompressive surgeries, fusions and subsequently had her instrumentation was removed by her surgeon, Dr. Mcdaniels due to broken hardware and her pain not improving. She reports that for the past 2 weeks she has been having increasing lower extremity weakness where she has required a walker to get around. She reports that her legs keep "giving out" on her. She endorses bilateral hip pain, right greater than left. She states the pain in her hips radiates down the backs of her legs to her knees. She reports new onset loss of bowel and bladder continence over the past 4 days. She denies neck pain, upper extremity pain or weaknes. She had another reported episode of incontinence of urine while in the emergency department. The patient denies any chest pain or shortness of breath. No abdominal pain. No nausea/vomiting/ diarrhea. MRI of thoracic and lumbar spine was obtained. Neurosurgical consultation was requested Past Family Social History Allergies: Coded Allergies: haloperidol (Verified Allergy, Severe, Anaphylaxis, 09/19/17) morphine (Verified Allergy, Severe, Itching, 09/20/17) also states gets hives ondansetron (Verified Allergy, Severe, Anaphylaxis, 09/19/17) prochlorperazine (Verified Allergy, Severe, Anaphylaxis, 09/19/17) ketorolac (Verified Allergy, Intermediate, SWELLOING ITCHING HIVES , ) tramadol (Verified Allergy, Intermediate, SWELLING ITCHING HIVES , 09/19/17) Sulfa (Sulfonamide Antibiotics) (Verified Allergy, Mild, Rash, 09/19/17) azithromycin (Verified Allergy, Mild, Rash, 09/19/17) droperidol (Verified Allergy, Mild, Rash, 09/19/17) nalbuphine (Verified Allergy, Mild, N/V, 09/19/17) Past Medical History GERD Anxiety Hyperlipidemia Chronic back pain Past Surgical History Lumbar laminectomy and Discectomy L3-S1 fusion, failed and repaired by Dr Mcdaniels L2-L3 fusion, failed and repaired by Dr Mcdaniels Multiple epidural injections Spinal stimulator Pain pump (not currently active) Hysterectomy Cholecystectomy Appendectomy Shoulder surgery Knee surgery 2 Right foot surgery Reported Medications Cyanocobalamin Inj (Cyanocobalamin) 1,000 Mcg/Ml Inj 1 Ml IM WEEKLY Dextroamphetamine (Dextroamphetamine Sulfate) 10 Mg Tab 10 Mg PO BID PRN Ibuprofen 800 Mg Tab 800 Mg PO BID PRN Sucralfate 1 Gram Tab 1 Gm PO QID on empty stomach Dymista Nasal Bouton (Azelastine-Fluticasone Nasal Bouton) 137-50 Mcg Bouton 1 Bouton EACH NARE BID To each nostril. Zolpidem (Zolpidem Tartrate) 10 Mg Tab 10 Mg PO HS PRN Tizanidine (Tizanidine HCl) 4 Mg Cap 4 Mg PO HS Lovastatin 10 Mg Tab 10 Mg PO HS [place] (Hydrocodone-Acetaminophen) 10-325 Mg Tab 1 Tab PO Q4-6H PRN Valium (Diazepam) 10 Mg Tab 10 Mg PO TID PRN Soma (Carisoprodol) 350 Mg Tab 350 Mg PO DAILY PRN Adderall Xr 24 HR (Amphetamine/Dextroamphetamine) 30 Mg Cap 60 Mg PO DAILY Once daily in the morning. Physical Exam Vital Signs Vital Signs Date Time Temp Pulse Resp B/P (MAP) Pulse Ox O2 Delivery O2 Flow Rate FiO2 09/20/17 08:00 96.5 64 16 99/52 (68) 98 09/20/17 02:24 96.7 61 20 124/80 (95) 98 Room Air 09/19/17 22:45 20 09/19/17 19:01 98 Room Air 09/19/17 14:32 98.5 78 18 165/77 (106) 99 Physical Exam The patient is alert, awake and oriented to time, place and person. Speech is fluent. Cranial nerve examination: pupils to be equal, round and reactive to light. Extra-ocular movements are intact. Facial motor and sensory function are normal and symmetrical. Gross hearing appears intact. Sternocleidomastoid and trapezius muscles are symmetrical. Other cranial nerves are intact. Neck is soft and supple with a good range of motion without pain. Muscle strength is normal in all muscle groups of both upper extremities with give away due to pain in her lower extremities. Sensory examination showed chronic decreased sensation in her lower extremities. Deep tendon reflexes are symmetrical in both upper and lower extremities. There is a bilateral plantar flexion response. Cerebellar examination is unremarkable SKIN: No rashes, ecchymoses or lesions. Cool and dry. HEAD: Atraumatic. Normocephalic. No temporal or scalp tenderness. NECK: Trachea midline. No JVD or lymphadenopathy. Supple, nontender, no meningeal signs. CARDIOVASCULAR: Regular rate and rhythm without murmurs, gallops, or rubs. RESPIRATORY: Clear bilaterally. No wheezes, rales, or rhonchi. MUSCULOSKELETAL: Extremities without clubbing, cyanosis, or edema. No joint tenderness, effusion, or edema noted. No calf tenderness. Negative Homans sign bilaterally. Laboratory Laboratory Tests Test 09/19/17 17:22 09/19/17 17:39 Urine Color LIGHT-YELLOW Urine Turbidity CLEAR Urine pH 5.5 Urine Specific [place] 1.007 Urine Protein NEG Urine Glucose (UA) NEG Urine Ketones NEG Urine Occult Blood NEG Urine Nitrite NEG Urine Bilirubin NEG Urine Urobilinogen LESS THAN 2.0 Urine Leukocyte Esterase NEG Urine RBC 1 Urine WBC LESS THAN 1 Urine Squamous Epithelial Cells 4 Urine Bacteria RARE Urine Mucus FEW Microscopic Urinalysis Comment CULT NOT INDICATED White Blood Count 8.3 Red Blood Count 4.60 Hemoglobin 14.2 Hematocrit 42.9 Mean Corpuscular Volume 93.1 Mean Corpuscular Hemoglobin 30.9 Mean Corpuscular Hemoglobin Concent 33.2 Red Cell Distribution Width 13.4 Platelet Count 304 Mean Platelet Volume 8.0 Neutrophils (%) (Auto) 70.4 Lymphocytes (%) (Auto) 24.4 Monocytes (%) (Auto) 3.8 Eosinophils (%) (Auto) 0.5 Basophils (%) (Auto) 0.9 Neutrophils # (Auto) 5.9 Lymphocytes # (Auto) 2.0 Monocytes # (Auto) 0.3 Eosinophils # (Auto) 0.0 Basophils # (Auto) 0.1 CBC Comment DIFF FINAL Differential Comment Prothrombin Time 10.3 Prothromb Time International Ratio 1.0 Activated Partial Thromboplast Time 23.6 Blood Urea Nitrogen 7 Creatinine 0.81 Random Glucose 88 Calcium Level 8.4 Sodium Level 139 Potassium Level 3.5 Chloride Level 108 Carbon Dioxide Level 24.9 Anion Gap 6 Estimat Glomerular Filtration Rate 76 Result Diagram: 09/19/179 09/19/171738 Imaging Last 48 hours Impressions Lumbar Spine MRI 09/19/171823 Signed Impressions: Service Date/Time: Tuesday, September 19, 2017 20:46 - CONCLUSION: 1. Postoperative fusion as above. No acute fracture or spondylolisthesis. There is epidural lipomatosis which is similar to January 2016. No bony canal stenosis. No abnormal enhancing lesions post contrast. No direct nerve root compression is seen. Juwan Avilez MD Attending Statement I reviewed her radiological studies Lumbar Spine MRI 09/19/171823 Signed Impressions: Service Date/Time: Tuesday, September 19, 2017 20:46 - CONCLUSION: 1. Postoperative fusion as above. No acute fracture or spondylolisthesis. There is epidural lipomatosis which is similar to January 2016. No bony canal stenosis. No abnormal enhancing lesions post contrast. No direct nerve root compression is seen. Juwan Avilez MD Thoracic Spine MRI 09/19/17 0000 Signed Impressions: Service Date/Time: Tuesday, September 19, 2017 20:46 - CONCLUSION: Normal examination for a patient of this age. Juwan Avilez MD I do not see any neural compression which would explain the patient's deficits. I cannot explain any bowel incontinence based on her MRI of the thoracic and lumbar spine. Consider a consultation to a speech language pathologist prn In regards to her chronic low back pain, she has had multiple surgeries by Dr. Mcdaniels at [facility]. I do not have anything to offer at this time. I recommend that she continues following with Dr. Mcdaniels and follow up with her pain specialist, Dr. Irwin and pulmonary toilette, nasotracheal suction, and breathing treatments with nebulizers. Nutrition. NPO Renal. monitor closely urine output, BUN and creatinine Endocrine. Monitor serial Acu checks and SSI as needed in detail ID monitor for signs of infection Protonix for stress ulcer prophylaxis Danilo hose and SCD's for DVT prophylaxis. João Leon MD Sep 20, 2017 09:06
[2017-09-20 12:00] VITALS: BP 130/74; PULSE 66; RESP 18; TEMP 97.6; O2SAT 100
[2017-09-20] MEDS: DEXTROAMPHETAMINE/AMPHETAMINE XR 30 MG CAP PO SCH (12:00)
[2017-09-20] MEDS ORDERED: IBUPROFEN 800 MG TAB PO PRN (12:00)
[2017-09-20] MEDS: DIAZEPAM 10 MG TAB PO PRN ×2 (14:07→21:10)
--- NOTE | 2017-09-20 15:43 | HHI.PR ---
Addendum to Inpatient Note Addendum Reason: Additional Documentation Additional Information The patient complains of severe pain in the lumbar spine, however she does not seem to be in great distress from it. Patient also complains of urinary and bowel incontinence. Patient complains of bilateral extremity weakness more on the right. Pain radiates to the knees. Patient is awake alert oriented 3, in mild distress, starts crying during interview stating that she is not comprehended and that all she wants is to be able to ambulate. Lungs are clear to auscultation bilaterally, S1-S2 present with regular rate and rhythm, no murmurs or gallops. Abdomen is soft, nontender nondistended. Muscle strength is limited due to pain in bilateral extremities with the left lower extremity being 4/5 and the right lower extremity being 3 out of 5. Patient had MRI of the lumbar and thoracic spine. Patient has had a postoperative fusion. No acute fracture or spondylolisthesis. There is epidural lipomatosis which is similar to January 2016. No bony canal stenosis. No abnormal enhancing lesions postcontrast. No direct nerve root compression seen. The patient has been seen by neurosurgery and recommendations are pending , however as per RN report the patient will not have any surgical procedure done. I will start the patient on Oramorph 15 mg p.o. twice daily. I will resume the patient's home for Zanaflex, Soma, ibuprofen. Alex Ortega MD Sep 20, 2017 15:43
[2017-09-20 16:00] VITALS: BP 126/75; PULSE 70; RESP 18; TEMP 97.5; O2SAT 98
[2017-09-20] MEDS: CARISOPRODOL 350 MG TAB PO PRN ×2 (17:42→21:52)
[2017-09-20 19:39] VITALS: BP 106/58; PULSE 80; RESP 16; TEMP 97.8; O2SAT 96
[2017-09-20] MEDS ORDERED: MORPHINE SULFATE 15 MG CONTROLLED RELEASE TAB PO SCH (21:00)
[2017-09-20] MEDS ORDERED: PRAVASTATIN SOD 10 MG TAB PO SCH (21:00)
[2017-09-20] MEDS: oxyCODONE HCL 10 MG CONTROLLED RELEASE TAB PO SCH (21:10)
[2017-09-21] MEDS: SODIUM CHLOR 0.9% 1000 ML INJ 1,000 ML IV SCH (06:27)
[2017-09-21 07:53] VITALS: BP 117/63; PULSE 64; RESP 18; TEMP 97.4; O2SAT 100
[2017-09-21] MEDS: DOCUSATE SODIUM 50 MG/SENNA 8.6 MG TAB PO SCH (08:17)
[2017-09-21] MEDS: SODIUM CHLORIDE 0.9% FLUSH 10 ML FLUSH IV FLUSH SCH (08:17)
[2017-09-21] MEDS: oxyCODONE HCL 10 MG CONTROLLED RELEASE TAB PO SCH (08:18)
[2017-09-21] MEDS ORDERED: INFLUENZA VIRUS VACCINE (QUADRIVALENT) 0.5 ML SYR IM ONE (10:00)
[2017-09-21] MEDS: DIAZEPAM 10 MG TAB PO PRN (10:10)
[2017-09-21] MEDS: PNEUMOCOCCAL POLYVALENT INJ 25 MCG/0.5 ML SYR IM ONE ×2 (10:11→10:19)
[2017-09-21 11:00] LABS: BICARBONATE 24.8 MEQ/L (21.0-32.0); CALCIUM 8.5 MG/DL (8.5-10.1); CREATININE 0.68 MG/DL (0.50-1.00)
[2017-09-21] MEDS: DEXTROAMPHETAMINE/AMPHETAMINE XR 30 MG CAP PO SCH (11:31)
[2017-09-21 12:26] VITALS: BP 133/63; PULSE 89; RESP 18; TEMP 97.1; O2SAT 99
[2017-09-21] MEDS ORDERED: ACETAMINOPHEN/HYDROcodone 325 MG/10 MG TAB PO PRN (15:15)
[2017-09-21] MEDS ORDERED: ACETAMINOPHEN/HYDROcodone 325 MG/5 MG TAB PO PRN (15:15)
--- NOTE | 2017-09-21 16:26 | HHI.PR ---
Subjective Remarks Follow-up visit chronic back pain, lower extremity weakness, bladder and bowel incontinence, right hip pain. Patient seen and examined today. Reports she does not want to take OxyContin medication and it makes her sensitive to the smell inside her room. Patient states that she has been taking [place]'s for more than 10 years and that is what is working for her . Patient states that she called patient advocate because she wants to get interventional radiology to do steroid injection for her. Discussed with patient that we used E force to verify drug information and found most of her medications are not found and some has been for last year. Patient states because "I don't often use the medication so I still have most of them, I only take it when I need it. I don't abuse norco." Discuss with patient Dr. Leon recommendation. She will need to follow-up with her neurosurgeon Dr. Mcdaniels. Patient states that she does not want to follow- up with Dr. Mcdaniels anymore. She called patient advocate trying to get the steroids. And she also started to complain about right hip pain. States that she had MRI done in [facility], showed me the results. States that did not do anything for her there. States she is unable to walk and get out of bed. I discontinued the IV fluids and patient states "I needed because I do not drink water and I get dehydrated." Discussed with patient that she is only n.p.o. just in case of procedure will be done however there is no procedure to be done according to Dr. Leon and she cannot take the IV fluids home. She now complains of chest pain because of oxycontin that was given to her. Discussed her vital signs have been within normal. States she wants [place]'s. Denies nausea, vomiting, diarrhea, abdominal pain. States she has lost control of her bowel and bladder. And she is unable to move and walk. She states that she does not want to take any narcotics anymore and if she could get the steroid injection to be able to walk. RN was asked to have the patient sign to pull up records from [facility]. Objective Vitals Vital Signs Date Time Temp Pulse Resp B/P (MAP) Pulse Ox O2 Delivery O2 Flow Rate FiO2 09/21/17 12:26 97.1 89 18 133/63 (86) 99 4/11/18 07:53 97.4 64 18 117/63 (81) 100 09/21/17 05:01 09/21/17 00:40 09/21/17 00:15 18 09/20/17 21:48 18 09/20/17 19:39 97.8 80 16 106/58 (74) 96 I/O 09/20/17 09/20/17 09/20/17 09/21/17 09/21/17 09/21/17 07:00 15:00 23:00 07:00 15:00 23:00 Intake Total 1000 ml 200 ml 100 ml Balance 1000 ml 200 ml 100 ml Intake Oral 200 ml IV Total 1000 ml 100 ml # Voids 1 1 Result Diagram: 09/19/17 1739 09/21/17 0909 Imaging Last Impressions Lumbar Spine MRI 09/19/17 1824 Signed Impressions: Service Date/Time: Tuesday, September 19, 2017 20:46 - CONCLUSION: 1. Postoperative fusion as above. No acute fracture or spondylolisthesis. There is epidural lipomatosis which is similar to January 2016. No bony canal stenosis. No abnormal enhancing lesions post contrast. No direct nerve root compression is seen. Juwan Avilez MD Thoracic Spine MRI 09/19/17 0000 Signed Impressions: Service Date/Time: Tuesday, September 19, 2017 20:46 - CONCLUSION: Normal examination for a patient of this age. Juwan Avilez MD Objective Remarks GENERAL: This is a well-nourished, well-developed patient, in no apparent distress. SKIN: Warm and dry. HEENT: Normocephalic. Pupils equal round and reactive. Nose without bleeding. Airway patent. NECK: Trachea midline. CARDIOVASCULAR: Regular rate and rhythm without murmurs, gallops, or rubs. RESPIRATORY: Clear to auscultation. Breath sounds equal bilaterally. No wheezes , rales, or rhonchi. GASTROINTESTINAL: Abdomen soft, non-tender, nondistended. Bowel Sounds normoactive x4. MUSCULOSKELETAL: Extremities without clubbing, cyanosis, or edema. Right lower extremity limited R OM, painful to abduction starting at 15 degrees. Right lower extremities weaker plantarflex and dorsiflex. Positive tone. NEUROLOGICAL: Awake and alert. Oriented to time, place, person. No focal neuro deficit. Normal speech. A/P Problem List: (1) Bowel and bladder incontinence ICD Code: R32 - Unspecified urinary incontinence; R15.9 - Full incontinence of feces Status: Acute (2) Acute exacerbation of chronic low back pain ICD Code: M54.5 - Low back pain; G89.29 - Other chronic pain Status: Acute (3) Lower extremity weakness ICD Code: R29.898 - Other symptoms and signs involving the musculoskeletal system Status: Acute Assessment and Plan 47-year-old female with a past medical history significant for chronic back pain status post multiple surgeries presents to the emergency department for evaluation of lower extremity weakness and incontinence of bowel/bladder. Intractable back pain/bowel/bladder incontinence Right hip pain -Lumbar and thoracic spine MRI showed no direct nerve root compression or acute findings, imaging stable from January 2016 -Neurosurgery consulted, appreciate recommendations. No surgical intervention. Recommends to go back with previous neurosurgeon Dr. Mcdaniels. -Physical therapy consulted, appreciate assistance -patient refused physical therapy yesterday -Previous MRI 09/06/17 from [facility] of the right hip with and without contrast showed focal right anterior superior labral tear. Mild right gluteus medius tendinosis. Narrowing of ischiofemoral distances bilateral with mild marrow edema in the quadratus femoris. This may be correlated for symptoms of the ischiofemoral impingement. Mild right SI joint osteoarthrosis with a small joint effusion. Postoperative changes from lower sacral fusion and posterior decompression. -Discuss case with Dr. Carr, who discussed the case with Dr. Real Grigsby. Apparently patient went to [facility] last August status post fall and two different groups orthopedic surgeons have been consulted for her. Recommend none operability as these are contusions. Dr. Irwin recommended possible future steroid injection but not now. Patient is recommended to follow up with Dr. Irwin. -Patient refused to sign disclosure documents so that her medical records can be pulled out of [facility]. Pain seeking behavior -E force was checked patient was given [place] -09/05/17, 120tabs. Valium given, 03/08/17-06/20/17, 90 tabs. Ambien, last Ambien was from last year 06/10/2017, 10 tabs. -Patient takes Carisprodol 350 08/16/17-09/05/17, given 30 tabs, Adderall 30mg 06/01/18 - 06/22/17, 180 tabs. Adderall 10mg 06/01/18 - 06/22/17,120 tabs. -Counselled. States "I don't abuse it." "I don't want narcotics anymore, I want my problem to be resolved. When asked regarding medications that were not found in the E[employer], patient states she does not use it all. However, she contradicts herself when she states "I used them nightly", with Ambien, wherein she was only given 10 tabs since 06/10/17. Hyperlipidemia/GERD Continue home medications DVT prop SCDs Discussed with patient, nursing,and Dr. Carr Discharge Planning Plan to DC home today. Cleared by neurology and orthopedics to follow-up with Dr. Irwin in orthopedics and also Dr. Mcdaniels neurosurgeon. Problem Qualifiers (1) Lower extremity weakness: Qualified Codes: R29.898 - Other symptoms and signs involving the musculoskeletal system Kenna Chavez [employer] Sep 21, 2017 16:26
[2017-09-21 16:38] VITALS: BP 132/76; PULSE 93; RESP 18; TEMP 98; O2SAT 100
--- NOTE | 2017-09-21 17:05 | HHI.DCPOC ---
Discharge Care Plan Diagnosis: (1) Bowel and bladder incontinence (2) Acute exacerbation of chronic low back pain (3) Lower extremity weakness Your Health Problems Are: Difficulty with ADL Inflammation Swelling Irregular Bowel Function Loss of Movements Goals to Promote Your Health * To prevent worsening of your condition and complications * To maintain your health at the optimal level Directions to Meet Your Goals Take your medications as prescribed Follow your dietary instruction Follow activity as directed Keep your appointments as scheduled Take your immunizations and boosters as scheduled If your symptoms worsen call your PCP, if no PCP go to Urgent Care Center or Emergency Room Smoking is Dangerous to Your Health. Avoid second hand smoke Call the 24-hour hour crisis hotline for domestic abuse at Kenna Chavez [facility] Sep 21, 2017 17:05
--- NOTE | 2017-09-21 17:16 | HHI.DS ---
Discharge Summary Admission Date Sep 19, 2017 at 22:18 Discharge Date: Sep 21, 2017 Admitting Diagnosis Back pain with leg weakness and incontinence (1) Bowel and bladder incontinence ICD Code: R32 - Unspecified urinary incontinence; R15.9 - Full incontinence of feces Status: Acute (2) Acute exacerbation of chronic low back pain ICD Code: M54.5 - Low back pain; G89.29 - Other chronic pain Status: Acute (3) Lower extremity weakness ICD Code: R29.898 - Other symptoms and signs involving the musculoskeletal system Status: Acute Procedures None Brief History - From Admission 47-year-old female with a past medical history significant for chronic back pain status post multiple surgeries presents to the emergency department for evaluation of lower extremity weakness and incontinence of bowel/bladder. The patient has her pain managed by Dr. Gallardo and her epidural injections done by Dr. Irwin. She reports that for the past 2 weeks she has been having increasing lower extremity weakness where she has required a walker to get around. She reports that her legs keep "giving out" on her. She endorses bilateral hip pain, right greater than left. She states the pain in her hips radiates down the backs of her legs to her knees. She reports new onset loss of bowel and bladder continence over the past 4 days. She had another reported episode of incontinence of urine while in the emergency department. The patient denies any chest pain or shortness of breath. No abdominal pain. No nausea/vomiting/diarrhea. CBC/BMP: 09/19/17 1739 09/21/17 0909 Significant Findings Laboratory Tests Test 09/19/17 17:22 09/19/17 17:39 09/21/17 09:09 09/21/17 13:03 Urine Bacteria RARE /hpf (NONE) Urine Mucus FEW /lpf (OCC) Neutrophils (%) (Auto) 70.4 % (16.0-70.0) Activated Partial Thromboplast Time 23.6 SEC (24.3-30.1) Calcium Level 8.4 MG/DL (8.5-10.1) Chloride Level 108 MEQ/L (98-107) 109 MEQ/L (98-107) Estimat Glomerular Filtration Rate 76 ML/MIN (>89) Imaging Last Impressions Lumbar Spine MRI 09/19/17 1824 Signed Impressions: Service Date/Time: Tuesday, September 19, 2017 20:46 - CONCLUSION: 1. Postoperative fusion as above. No acute fracture or spondylolisthesis. There is epidural lipomatosis which is similar to January 2016. No bony canal stenosis. No abnormal enhancing lesions post contrast. No direct nerve root compression is seen. Juwan Avilez MD Thoracic Spine MRI 09/19/17 0000 Signed Impressions: Service Date/Time: Tuesday, September 19, 2017 20:46 - CONCLUSION: Normal examination for a patient of this age. Juwan Avilez MD PE at Discharge GENERAL: This is a well-nourished, well-developed patient, in no apparent distress. SKIN: Warm and dry. HEENT: Normocephalic. Pupils equal round and reactive. Nose without bleeding. Airway patent. NECK: Trachea midline. CARDIOVASCULAR: Regular rate and rhythm without murmurs, gallops, or rubs. RESPIRATORY: Clear to auscultation. Breath sounds equal bilaterally. No wheezes , rales, or rhonchi. GASTROINTESTINAL: Abdomen soft, non-tender, nondistended. Bowel Sounds normoactive x4. MUSCULOSKELETAL: Extremities without clubbing, cyanosis, or edema. Right lower extremity limited R OM, painful to abduction starting at 15 degrees. Right lower extremities weaker plantarflex and dorsiflex. Positive tone. NEUROLOGICAL: Awake and alert. Oriented to time, place, person. No focal neuro deficit. Normal speech. Pt update on day of discharge Follow-up visit chronic back pain, lower extremity weakness, bladder and bowel incontinence, right hip pain. Patient seen and examined today. Reports she does not want to take OxyContin medication and it makes her sensitive to the smell inside her room. Patient states that she has been taking [place]'s for more than 10 years and that is what is working for her . Patient states that she called patient advocate because she wants to get interventional radiology to do steroid injection for her. Discussed with patient that we used E force to verify drug information and found most of her medications are not found and some has been for last year. Patient states because "I don't often use the medication so I still have most of them, I only take it when I need it. I don't abuse norco." Discuss with patient Dr. Loen recommendation. She will need to follow-up with her neurosurgeon Dr. Mcdaniels. Patient states that she does not want to follow- up with Dr. Mcdaniels anymore. She called patient advocate trying to get the steroids. And she also started to complain about right hip pain. States that she had MRI done in [facility], showed me the results. States that did not do anything for her there. States she is unable to walk and get out of bed. I discontinued the IV fluids and patient states "I needed because I do not drink water and I get dehydrated." Discussed with patient that she is only n.p.o. just in case of procedure will be done however there is no procedure to be done according to Dr. Leon and she cannot take the IV fluids home. She now complains of chest pain because of oxycontin that was given to her. Discussed her vital signs have been within normal. States she wants [place]'s. Denies nausea, vomiting, diarrhea, abdominal pain. States she has lost control of her bowel and bladder. And she is unable to move and walk. She states that she does not want to take any narcotics anymore and if she could get the steroid injection to be able to walk. RN was asked to have the patient sign to pull up records from [facility]. Hospital Course 47-year-old female with a past medical history significant for chronic back pain status post multiple surgeries presents to the emergency department for evaluation of lower extremity weakness and incontinence of bowel/bladder. Patient was previously seen at [facility] but refused to sign release of information from the hospital. She has intractable pain, right hip pain, reports of bladder and bowel incontinence. Lumbar and thoracic spine MRI showed no direct nerve root compression or acute findings. Imaging stable from January 2016. Neurosurgery was consulted there was no surgical intervention to be done. Neurosurgery Dr. Leon recommends to go back and follow-up with previous neurosurgeon Dr. Mcdaniels. Patient showed previous report of MRI from [facility] MRI 09/06/17 from [facility] of the right hip with and without contrast showed focal right anterior superior labral tear. Mild right gluteus medius tendinosis. Narrowing of ischiofemoral distances bilateral with mild marrow edema in the quadratus femoris. This may be correlated for symptoms of the ischiofemoral impingement. Mild right SI joint osteoarthrosis with a small joint effusion. Postoperative changes from lower sacral fusion and posterior decompression. This has been discussed with Dr. Carr who discussed the case with Dr. Real Bates. Apparently patient went to [facility] last September 06 status post fall and there were 2 orthopedic surgeons who have evaluated her. Recommendation was none operability as her right hip only has contusions. 1 of the orthopedist, Dr. Irwin recommend possible future steroid injection but not now. According to Dr. Bates patient will need to follow-up with Dr. Irwin in the outpatient setting. Patient has pain seeking behavior. E force was checked patient was given [place] 10/325 -09/05/17, 120tabs. Valium given, 03/08/17-06/20/17, 90 tabs. Ambien, last Ambien was from last year 06/10/2017, 10 tabs. Patient takes Carisprodol 350 08/16/17-09/05/17, given 30 tabs, Adderral 30mg 06/01/18 - 06/22/17 , 180 tabs. Adderal 10mg 06/01/18 - 06/22/17,120 tabs. During hospitalization, patient complained of chest pain because she wanted her pain medications to be changed. She also states that she does not drink water, and should be on IVF. Patient advise to follow-up with appropriate consults. Pt Condition on Discharge: Stable Discharge Disposition: Discharge Home Discharge Time: <= 30 minutes Discharge Instructions DIET: Follow Instructions for: Heart Healthy Diet Activities you can perform: Regular-No Restrictions Activities to Avoid: Driving for 24 hrs, Driving Follow up Referrals: Neurosurgery - 2 Weeks with Masoud Mcdaniels M.d. Orthopedics - 2 Weeks with [facility] P[facility] Follow-up - 2-3 Days Continued Medications: Amphetamine-Dextroamphetamine ER 24 HR (Adderall Xr 24 HR) 30 Mg Cap 60 MG PO DAILY for Hyperactivity Control, #30 CAP 0 Refills Once daily in the morning. Azelastine-Fluticasone Nasal [place] (Dymista Nasal [place]) 137-50 Mcg [place] 1 SPRAY EACH NARE BID for Allergies, #1 BOTTLE 0 Refills To each nostril. Carisoprodol (Soma) 350 Mg Tab 350 MG PO DAILY PRN for PAIN, TAB 0 Refills Cyanocobalamin Inj (Cyanocobalamin Inj) 1,000 Mcg/Ml Inj 1 ML IM WEEKLY Dextroamphetamine (Dextroamphetamine) 10 Mg Tab 10 MG PO BID PRN for with adderal as needed, #30 TAB 0 Refills Hydrocodone-Acetaminophen ([place]) 10-325 Mg Tab 1 TAB PO Q4-6H PRN for PAIN, TAB 0 Refills Ibuprofen (Ibuprofen) 800 Mg Tab 800 MG PO BID PRN for PAIN, #40 TAB 0 Refills Lovastatin (Lovastatin) 10 Mg Tab 10 MG PO HS for Cholesterol Management, #30 TAB 0 Refills Sucralfate (Sucralfate) 1 Gram Tab 1 GM PO QID for Duodenal ulcer, #120 TAB 0 Refills on empty stomach Tizanidine (Tizanidine) 4 Mg Cap 4 MG PO HS for Muscle Spasm, CAP 0 Refills Discontinued Medications: Diazepam (Valium) 10 Mg Tab 10 MG PO TID PRN for ANXIETY, TAB 0 Refills Zolpidem (Zolpidem) 10 Mg Tab 10 MG PO HS PRN for INSOMNIA, TAB 0 Refills Kenna Chavez Sep 21, 2017 17:16
[2017-09-21 17:43] LABS: AUTOMATED NEUTROPHIL # 5.9 TH/MM3 (1.8-7.7); BASOPHIL # 0.1 TH/MM3 (0-0.2); BASOPHIL % 0.7 % (0.0-2.0); EOSINOPHIL # 0.1 TH/MM3 (0-0.4); EOSINOPHIL % 1.1 % (0.0-4.0); HEMATOCRIT 42.8 % (35.0-46.0); HEMOGLOBIN 14.3 GM/DL (11.6-15.3); LYMPH % 23.4 % (9.0-44.0); LYMPHOCYTE # 1.9 TH/MM3 (1.0-4.8); MEAN CELL VOLUME 93.1 FL (80.0-100.0); MEAN CORPUSCULAR HEMOGLOBIN 31.1 PG (27.0-34.0); MEAN CORPUSCULAR HGB CONC 33.4 % (32.0-36.0); MONO % 3.7 % (0.0-8.0); MONOCYTE # 0.3 TH/MM3 (0-0.9); NEUT % 71.1 % (16.0-70.0); PLATELET COUNT 244 TH/MM3 (150-450); RED CELL DISTRIBUTION WIDTH 13.5 % (11.6-17.2); WHITE BLOOD COUNT 8.3 TH/MM3 (4.0-11.0)
[2017-09-21] MEDS ORDERED: HYDR-3366 PO (19:51)
--- NOTE | 2017-09-22 18:53 | EKG ---
Date Performed: 09/21/2017 Time Performed: 14:30:46 PTAGE: 47 years EKG: Sinus rhythm POSSIBLE LEFT ATRIAL ENLARGEMENT Since the previous tracing, no significant change noted BORDERLINE ECG PREVIOUS TRACING : 09/21/2017 14.28 DOCTOR: Wu Umaña Interpretating Date/Time 09/22/2017 18:48:08
== END 2017-09-21 23:27 | disposition home or self-care (01) ==
LOC: NEPC 13:56 → NEDA 22:18 → NEDH 09-20 02:55 → NEPHCDU 09-20 16:34
PROVIDERS: ADMIT Hospitalist; ATTEND Hospitalist
DX: M54.5 Low back pain (principal); R07.9 Chest pain, unspecified; R53.1 Weakness; R32 Unspecified urinary incontinence; R15.9 Full incontinence of feces; E78.5 Hyperlipidemia, unspecified; K21.9 Gastro-esophageal reflux disease without esophagitis; G89.29 Other chronic pain; M25.551 Pain in right hip; M25.552 Pain in left hip; R29.898 Other symptoms and signs involving the musculoskeletal system; M54.16 Radiculopathy, lumbar region; E88.2 Lipomatosis, not elsewhere classified; F41.9 Anxiety disorder, unspecified; F40.240 Claustrophobia; Z79.899 Other long term (current) drug therapy; Z98.1 Arthrodesis status
CPT/HCPCS: 72146; 72158; 80048; 81001; 85025; 85610; 85730; 93005; 96361; 96374; 96375; 96376; 97110; 97162; 99285; A9579; G0378; G8987; G8988; J2060; J2270; J7030; 90732

== ENCOUNTER 2017-10-04 12:53 | Day surgery (SDC) | payer BC, MEDICARE ==
[~2017-10-04 12:53] MED LIST changes: +AMBI10TA PO; -AZEL137S EACH NARE; -ZOLP10TA3 PO
[2017-10-04 13:14] VITALS: BP 154/79; PULSE 95; RESP 20; TEMP 98.3; O2SAT 100
[2017-10-04 15:05] VITALS: BP 107/67; PULSE 89; RESP 18; TEMP 98.4; O2SAT 100
--- NOTE | 2017-10-04 15:31 | RADRPT ---
EXAM DATE/TIME: 10/04/2017 14:55 [place] COMPARISON: No previous studies available for comparison. INDICATIONS : Patient for surgery.Poor access. MEDICAL HISTORY : 1.HTN 2. migraines 3. seizures 4. GERD 5. UTI self caths 6. DDD 7. HDHD 8. anxiety 9. shingles 10. insomnia SURGICAL HISTORY : 1. Apendectomy 2. cholesyectomy 3. Lt breast bx 4. Hysterectomy 5. spine surgery 6. Knee surgery ENCOUNTER: Initial ACUITY: > 1 year PAIN SCORE: 0/10 FLUORO TIME: 0.3 minutes IMAGE SERIES: 1 ACCESS: Right basilic vein DEVICE(S): 1.) 4 U[place]bek single lumen 40 cm Xcela Power PICC PROCEDURE : 1. Ultrasound guidance for venous catheterization. 2. Fluoroscopic guidance. 3. Ultrasound & fluoroscopic guided central venous Power PICC line placement. The risks, benefits and alternatives to the procedure were explained and verbal and written consent w as obtained. The site was prepped in sterile fashion. Full sterile technique was used, including ca p, mask, sterile gloves and gown and a large sterile sheet. Hand hygiene and 2% chlorhexidine prep w as utilized per protocol for cutaneous antisepsis with appropriate dry time for site. Sterile gel a nd sterile probe cover were utilized for ultrasound guidance. The skin and subcutaneous tissues wer e infiltrated with local anesthetic solution. Under direct ultrasound guidance, a suitable vein was accessed and a measuring guidewire was introduc ed and positioned in the central venous system. The ultrasound images depicting access guidance were saved and stored to PACS for permanent record. A Power Injectable PICC line was cut to prescribed length and introduced, positioned with tip at the cavoatrial junction level. The line was flushed and secured per protocol. CONCLUSION: 1. Uncomplicated central venous Power PICC line placement. 2. The PICC line can be used immediately. Zaheer Linda Jr., MD on October 04, 2017 at 15:28 Board Certified Radiologist. This report was verified electronically.
--- NOTE | 2017-10-04 15:58 | PD.RAD ---
Radiology Post PICC Prog Note Pre Procedure Diagnosis: (1) Pre-op exam (2) Poor venous access Post Procedure Diagnosis: (1) Pre-op exam (2) Poor venous access Procedure: Right PICC line placement Procedure Date: Oct 04, 2017 Supervising Radiologist Zaheer Linda JR Proceduralist/Assist: RT Jo(R)() Device Side: Right [place]: 4 single lumen cm: 40 Catheter: Power PICC Jr. Alexei,Zaheer Bills MD Oct 04, 2017 15:58
[2017-10-04] MEDS ORDERED: SODIUM CHLORIDE 0.9% FLUSH 10 ML FLUSH IVF PRN ×2 (16:00)
[2017-10-05] MEDS ORDERED: SODIUM CHLORIDE 0.9% FLUSH 10 ML FLUSH IVF SCH (09:00)
== END 2017-10-04 15:30 | disposition home or self-care (01) ==
LOC: HROP 12:53 → HRIP 12:56 → HROP 15:30
PROVIDERS: ATTEND Family Medicine
DX: Z45.2 Encounter for adjustment and management of vascular access device (principal); I10 Essential (primary) hypertension; F41.9 Anxiety disorder, unspecified; K21.9 Gastro-esophageal reflux disease without esophagitis
CPT/HCPCS: 36569; 76937; 77001; C1751; J1642